=== PATIENT | male | born 1930 | race Caucasian/White ===

== ENCOUNTER 2019-01-24 22:11 | Inpatient (IN) ==
[2019-01-24] MEDS ORDERED: ACETAMINOPHEN 1,000 MG/100 ML VIAL IV STA (22:36)
[2019-01-24] MEDS ORDERED: SODIUM CHLORIDE 0.9% 500 ML IV SCH (22:45)
[2019-01-24 22:59] LABS: Basophils # (auto) 0.02 K/uL (0-0.2); Basophils % (auto) 0.2 %; Eosinophils # (auto) 0.23 K/uL (0-0.5); Eosinophils % (auto) 2.4 %; Hematocrit (blood only) 37.6 % (42-52); Hemoglobin 13.1 g/dL (14.0-18.0); Immature Granulocytes # (auto) 0.02 K/uL (0.00-0.02); Immature Granulocytes % (auto) 0.2 %; Lymphocytes # (auto) 1.06 K/uL (1.2-3.4); Lymphocytes % (auto) 11.1 %; Mean Corpuscular Hemoglobin 32.4 pg (25-34); Mean Corpuscular Hgb Conc 34.8 g/dL (32-36); Mean Corpuscular Volume 93.1 fL (80-100); Mean Platelet Volume 10.8 fL (7.4-10.4); Monocytes # (auto) 1.06 K/uL (0.11-0.59); Monocytes % (auto) 11.1 %; Neutrophils # (auto) 7.15 K/uL (1.4-6.5); Platelet Count 162 K/uL (130-400); RDW Coefficient of Variation 13.1 % (11.5-14.5); Red Blood Count 4.04 M/uL (4.7-6.1); White Blood Count 9.54 K/uL (4.8-10.8)
[2019-01-24 23:02] LABS: iSTAT Creatinine 0.8 mg/dl (0.6-1.3); iSTAT Hemoglobin 12.6 g/dl (14.0-18.0); iSTAT Ionized Calcium 1.13 mmol/l (1.12-1.32); iSTAT Potassium 3.7 mEq/L (3.3-5.0)
[2019-01-24] MEDS ORDERED: IOVERSOL 100ml IV PRN (23:07)
[2019-01-24 23:14] LABS: Alanine Aminotransferase 22 U/L (12-78); Albumin Level 3.1 gm/dl (3.4-5.0); Aspartate Aminotransferase 66 U/L (15-37); BUN Creatinine Ratio 26.7 (10-20); Blood Urea Nitrogen 25 mg/dl (7-18); Carbon Dioxide 26 mmol/L (21-32); Chloride 104 mmol/L (98-107); Est GFR (African American) 85.2; Est GFR (Non-African American) 73.6; Glucose 96 mg/dl (70-99); Magnesium 1.6 mg/dl (1.8-2.4); Potassium 3.6 mmol/L (3.5-5.1); Sodium 137 mmol/L (136-145)
[2019-01-24 23:20] LABS: INR 3.5 (0.9-1.1); Prothrombin Time 32.4 Seconds (9.0-12.0)
[2019-01-24 23:25] LABS: Albumin Globulin Ratio 0.7 (0.9-2); Alkaline Phosphatase 101 U/L (45-117); Bilirubin,Total 0.4 mg/dl (0.2-1); Creatine Kinase 549 U/L (39-308); Globulin 4.5 gm/dl (2.5-4.0); Total Protein 7.6 gm/dl (6.4-8.2); Troponin I 0.038 ng/ml (0-0.045)
[2019-01-24 23:44] LABS: Partial Thromboplastin Time 53.8 Seconds (21.0-31.0)
[2019-01-24 23:46] LABS: Appearance Urine Cloudy (Clear); Bacteria Urine Automated 4+ (Negative); Bilirubin Urine Negative (Negative); Blood Urine 2+ (Negative); Color Urine Yellow; Glucose Urine UA Negative (Negative); Ketones Urine Negative (Negative); Leukocyte Esterase Urine 2+ (Negative); Nitrite Urine Negative (Negative); Specific Gravity Urine 1.029 (1.000-1.030); Urobilinogen Urine Negative (Negative); WBC Urine Automated >30 /hpf (0-5); pH Urine 7.5 (4.5-7.5)
[2019-01-24] MEDS ORDERED: MAGNESIUM SULFATE / D5W 1 GM/100 ML BAG IV ONE (23:53)
[2019-01-25 00:09] LABS: Protein Urine Negative (Negative); Sulfosalicylic Acid Urine Negative (Negative)
[2019-01-25] MEDS ORDERED: cefTRIAXone SODIUM 2,000 MG/70 ML BAG IV STA (00:40)
--- NOTE | 2019-01-25 00:49 | Emergency Department Note ---
Entered by Prudence Mortensen acting as a scribe for Ta Rodriguez DO ED Visit Note The patient was seen and examined by myself in conjunction with the advanced care provider, Josefina Lopes PA-C. I agree with the history, physical and findings as documented. Please see the note for disposition and details. . The scribe's documentation has been prepared under my direction and personally reviewed by me in its entirety. I confirm that the note above accurately refle cts all work, treatment, procedures, and medical decision making performed by me.
--- NOTE | 2019-01-25 00:52 | Emergency Department Note ---
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 He has been falling more frequently. He has hit his head back and chest this past week. Coumadin last month was normal. Family is concerned and brought him in. The and daughters give the history. Patient is demented and unable to give history. Past Med/Surg History Social History Preferred Language: Romansh Feels Safe at Home: Yes Smoking Status: Never smoker Review of Systems Unobtainable due to cognitive status Physical Exam Vital Signs Vital Signs - 24 hr 01/24/19 22:14 01/24/19 23:16 01/25/19 00:00 Temperature 37.4 C Temperature Source Oral Pulse Rate 92 H 85 Pulse Rate [Apical] 85 Pulse Rate from SpO2 Sensor 84 Pulse Rhythm Regular Pulse Strength Normal Respiratory Rate 20 24 19 Respiratory Effort / Characteristics Non-Labored Respiratory Depth Normal Respiratory Pattern Regular Blood Pressure 175/82 H 156/90 H Blood Pressure [Left Arm] 176/83 H Blood Pressure Mean 113 109 Blood Pressure Mean [Left Arm] 114 Blood Pressure Position Sitting Pulse Oximetry 97 96 95 Oxygen Delivery Method Room Air Room Air Sepsis Recent Fever Within 48 Hours No Sepsis Action Taken by Nursing No Action Required VITALS: Vitals are noted on the nurse's note and reviewed by myself. Vital signs stable. GENERAL: Elderly male confused appearing, in no acute distress, nondiaphoretic, well-developed well-nourished. SKIN: Multiple different stages of bruises throughout the body and head, the rest of the skin was without rashes, erythema. There is no tenting of the skin. Capillary reflex less than 2 seconds. HEAD: Normocephalic atraumatic. EARS: External auditory canals clear, tympanic membranes pearly he without erythema or effusion bilaterally. EYES: Pupils equal round and reactive to light and accommodation. Conjunctivae without injection, sclerae without icterus. Extraocular movements intact. NOSE: Patent, turbinates without inflammation or discharge. MOUTH: Mucous membranes moist. Pharynx without erythema or exudate. Uvula midline. Airway patent. Tongue does not deviate. NECK: Supple without nuchal rigidity. No lymphadenopathy. No thyromegaly. Cervical spine is nontender. No JVD. HEART: Regular rate and rhythm LUNGS: Clear to auscultation bilaterally without wheezes, rales or rhonchi. No retractions or accessory muscle use. ABDOMEN: Positive bowel sounds x 4. Normal tympanic percussion. Soft, nontender, without masses or organomegaly. Varghese sign negative. No guarding or rebound tenderness. No CVA tenderness MUSCULOSKELETAL: No muscle atrophy, erythema, or edema noted. Midthoracic tenderness. Pelvis stable. 5-5 strength throughout. NEURO: Patient was alert and oriented to person but not place and time. Patient is able to follow commands Course Administered Medications Ioversol (Optiray 320 100ml) 90 ml IV ONCE PRN PRN Reason: Interaction Checking Stop: 01/28/19 23:06 Last Admin: 01/24/19 23:08 Dose: 90 ml Documented by: [id number] Discontinued Medications Sodium Chloride (Nss) 500 mls @ 999 mls/hr IV .Q31M NICKY Stop: 01/24/19 23:15 Last Infusion: 01/24/19 23:53 Dose: 0 mls/hr Documented by: [id number] Admin: 01/24/19 23:19 Dose: 999 mls/hr Documented by: [id number] Acetaminophen (Ofirmev) 1,000 mg in 100 mls @ 400 mls/hr IV NOW STA Stop: 01/24/19 22:50 Last Infusion: 01/24/19 23:35 Dose: 0 mls/hr Documented by: [id number] Admin: 01/24/19 23:19 Dose: 400 mls/hr Documented by: [id number] Magnesium Sulfate/Dextrose (Magnesium Sulfate / D5w) 1 gm in 100 mls @ 100 mls/hr IV ONE ONE Stop: 01/25/19 00:52 Last Infusion: 01/25/19 01:05 Dose: 0 mls/hr Documented by: [id number] Admin: 01/25/19 00:06 Dose: 100 mls/hr Documented by: [id number] Ceftriaxone Sodium (Rocephin) 2,000 mg in 70 mls @ 140 mls/hr IV NOW STA Stop: 01/25/19 01:09 Last Admin: 01/25/19 01:35 Dose: Not Given Documented by: [id number] Ceftriaxone Sodium (Rocephin) 1,000 mg in 50 mls @ 100 mls/hr IV NOW STA Stop: 01/25/19 01:30 Last Infusion: 01/25/19 01:35 Dose: 0 mls/hr Documented by: [id number] Admin: 01/25/19 01:05 Dose: 100 mls/hr Documented by: [id number] Medical Decision Making Medical Records Attestation: I reviewed the patient's medical records. Home Medications Current Medication List: was personally reviewed by me Laboratory Data Attestation: I reviewed the patient's lab results. Result diagrams: 01/24/19 22:49 01/24/19 22:49 Lab Results 01/24/19 01/24/19 01/24/19 Range/Units 22:47 22:49 22:49 WBC 9.54 (4.8-10.8) K/uL RBC 4.04 L (4.7-6.1) M/uL Hgb 13.1 L (14.0-18.0) g/dL POC Hgb 12.6 L (14.0-18.0) g/dl Hct 37.6 L (42-52) % POC Hct 37 L (42-52) % MCV 93.1 (80-100) fL MCH 32.4 (25-34) pg MCHC 34.8 (32-36) g/dL RDW Std Deviation 45.0 (36.4-46.3) fL RDW Coeff of Patience 13.1 (11.5-14.5) % Plt Count 162 (130-400) K/uL MPV 10.8 H (7.4-10.4) fL Immature Gran % (Auto) 0.2 % Neut % (Auto) 75.0 % Lymph % (Auto) 11.1 % [place] % (Auto) 11.1 % Eos % (Auto) 2.4 % Baso % (Auto) 0.2 % Immature Gran # (Auto) 0.02 (0.00-0.02) K/uL Neut # (Auto) 7.15 H (1.4-6.5) K/uL Lymph # (Auto) 1.06 L (1.2-3.4) K/uL [place] # (Auto) 1.06 H (0.11-0.59) K/uL Eos # (Auto) 0.23 (0-0.5) K/uL Baso # (Auto) 0.02 (0-0.2) K/uL PT (9.0-12.0) Seconds INR (0.9-1.1) APTT (21.0-31.0) Seconds PTT Ratio POC Sodium 138 (135-144) mEq/L Sodium 137 (136-145) mmol/L POC Potassium 3.7 (3.3-5.0) mEq/L Potassium 3.6 (3.5-5.1) mmol/L POC Chloride 102 (101-112) mEq/L Chloride 104 (98-107) mmol/L Carbon Dioxide 26 (21-32) mmol/L POC Total CO2 26 (24-31) mEq/l Anion Gap 8.0 (3-11) POC Anion Gap 14.0 L (16-25) mmol/L POC BUN 22 H (7-18) mg/dl BUN 25 H (7-18) mg/dl Creatinine 0.93 (0.6-1.4) mg/dl POC Creatinine 0.8 (0.6-1.3) mg/dl Est Cr Clr Drug Dosing Not Reportable Est GFR ( Amer) 85.2 Est GFR (Non-Af Amer) 73.6 BUN/Creatinine Ratio 26.7 H (10-20) Glucose 96 (70-99) mg/dl POC Glucose (other) 99 (70-99) mg/dl Calcium 9.0 (8.5-10.1) mg/dl POC Ioniz Calcium Mehdi 1.13 (1.12-1.32) mmol/l Magnesium 1.6 L (1.8-2.4) mg/dl Total Bilirubin 0.4 (0.2-1) mg/dl AST 66 H (15-37) U/L ALT 22 (12-78) U/L Alkaline Phosphatase 101 (45-117) U/L Total Creatine Kinase 549 H (39-308) U/L Troponin I 0.038 (0-0.045) ng/ml Total Protein 7.6 (6.4-8.2) gm/dl Albumin 3.1 L (3.4-5.0) gm/dl Globulin 4.5 H (2.5-4.0) gm/dl Albumin/Globulin Ratio 0.7 L (0.9-2) TSH 1.750 (0.300-4.500) uIu/ml Urine Color Urine Appearance (Clear) Urine pH (4.5-7.5) Ur Specific [place] (1.000-1.030) Urine Protein (Negative) Urine Glucose (UA) (Negative) Urine Ketones (Negative) Urine Blood (Negative) Urine Nitrite (Negative) Urine Bilirubin (Negative) Urine Urobilinogen (Negative) Ur Leukocyte Esterase (Negative) Urine WBC (Auto) (0-5) /hpf Urine RBC (Auto) (0-4) /hpf U Hyaline Cast (Auto) (0-5) /lpf U Epithel Cells (Auto) (0-5) /lpf Urine Bacteria (Auto) (Negative) Urine Yeast 01/24/19 01/24/19 Range/Units 22:49 23:31 WBC (4.8-10.8) K/uL RBC (4.7-6.1) M/uL Hgb (14.0-18.0) g/dL POC Hgb (14.0-18.0) g/dl Hct (42-52) % POC Hct (42-52) % MCV (80-100) fL MCH (25-34) pg MCHC (32-36) g/dL RDW Std Deviation (36.4-46.3) fL RDW Coeff of Patience (11.5-14.5) % Plt Count (130-400) K/uL MPV (7.4-10.4) fL Immature Gran % (Auto) % Neut % (Auto) % Lymph % (Auto) % [place] % (Auto) % Eos % (Auto) % Baso % (Auto) % Immature Gran # (Auto) (0.00-0.02) K/uL Neut # (Auto) (1.4-6.5) K/uL Lymph # (Auto) (1.2-3.4) K/uL [place] # (Auto) (0.11-0.59) K/uL Eos # (Auto) (0-0.5) K/uL Baso # (Auto) (0-0.2) K/uL PT 32.4 H (9.0-12.0) Seconds INR 3.5 H (0.9-1.1) APTT 53.8 H* (21.0-31.0) Seconds PTT Ratio 2.0 POC Sodium (135-144) mEq/L Sodium (136-145) mmol/L POC Potassium (3.3-5.0) mEq/L Potassium (3.5-5.1) mmol/L POC Chloride (101-112) mEq/L Chloride (98-107) mmol/L Carbon Dioxide (21-32) mmol/L POC Total CO2 (24-31) mEq/l Anion Gap (3-11) POC Anion Gap (16-25) mmol/L POC BUN (7-18) mg/dl BUN (7-18) mg/dl Creatinine (0.6-1.4) mg/dl POC Creatinine (0.6-1.3) mg/dl Est Cr Clr Drug Dosing Est GFR ( Amer) Est GFR (Non-Af Amer) BUN/Creatinine Ratio (10-20) Glucose (70-99) mg/dl POC Glucose (other) (70-99) mg/dl Calcium (8.5-10.1) mg/dl POC Ioniz Calcium Mehdi (1.12-1.32) mmol/l Magnesium (1.8-2.4) mg/dl Total Bilirubin (0.2-1) mg/dl AST (15-37) U/L ALT (12-78) U/L Alkaline Phosphatase (45-117) U/L Total Creatine Kinase (39-308) U/L Troponin I (0-0.045) ng/ml Total Protein (6.4-8.2) gm/dl Albumin (3.4-5.0) gm/dl Globulin (2.5-4.0) gm/dl Albumin/Globulin Ratio (0.9-2) TSH (0.300-4.500) uIu/ml Urine Color Yellow Urine Appearance Cloudy A (Clear) Urine pH 7.5 (4.5-7.5) Ur Specific [place] 1.029 (1.000-1.030) Urine Protein Negative (Negative) Urine Glucose (UA) Negative (Negative) Urine Ketones Negative (Negative) Urine Blood 2+ H (Negative) Urine Nitrite Negative (Negative) Urine Bilirubin Negative (Negative) Urine Urobilinogen Negative (Negative) Ur Leukocyte Esterase 2+ H (Negative) Urine WBC (Auto) >30 H (0-5) /hpf Urine RBC (Auto) 5-10 H (0-4) /hpf U Hyaline Cast (Auto) 1-5 (0-5) /lpf U Epithel Cells (Auto) 10-20 H (0-5) /lpf Urine Bacteria (Auto) 4+ H (Negative) Urine Yeast Not Reportable Imaging Data Attestation: I personally reviewed and interpreted this imaging study as follows: Blood Pressure Blood Pressure Findings: Elevated blood pressure Blood Pressure Disposition: Referred to patients primary care provider [facility] Narrative Prior records/ancillary studies reviewed and summarized above. Nursing notes reviewed. Additional history obtained from family. The patient's history was concerning for increasing falls and possible abdominal and back pain. Differential diagnosis: Etiologies such as metabolic, infection, hypo/hyperglycemia, electrolyte abnormalities, cardiac sources, intracerebral event, toxicologic, neurologic, as well as others were entertained. Physical examination: As above. ER treatment provided: IV Lock Rocephin On reassessment the patient felt better. Diagnostics interpretation by me: ECG: Ordered for weakness Normal sinus, normal intervals, no acute ST-T wave changes. Impression normal sinus rhythm interpreted by myself I think arrhythmia is unlikely. EKG shows normal sinus rhythm with no interval abnormalities such as QT prolongation or WPW. There are no findings to suggest Brugada syndrome. Cardiac monitoring in the emergency department reveals no tachycardic or bradycardic dysrhythmia. Hypertrophic cardiomyopathy was considered but there are no clear historical elements pointing toward this. EKG is not suggestive. The QRS voltage is not extremely large and there are no suggestive Q waves. The labs revealed urine concerning for infection and sent for culture. Negative troponin Supratherapeutic INR, mild anemia Imaging studies: US RUQ: The gallbladder is decompressed with a few intraluminal stones. No mucosal thickening or pericholecystic free fluid. No biliary dilatation. Negative Varghese's sign. Unremarkable appearance of the visualized portions of the right liver and the right kidney. The pancreas is obscured by bowel gas. Radiologist: Taj Murillo MD CT C SPINE: Mild height loss at T1, favored chronic. Correlate for point tenderness. Otherwise no fracture within the cervical spine. Radiologist: Taj Murillo MD CT CHEST With Contrast: No traumatic injury within the chest. Coronary artery calcifications. Mild atherosclerotic calcifications of the aorta. Mildly ectatic ascending aorta measuring 4.0 cm. Radiologist: Taj Murillo MD CT L SPINE: No acute fracture or malalignment. Chronic left L3 transverse process fracture. Radiologist: Taj Murillo MD CT T SPINE: No acute fracture in the thoracic spine. Radiologist: Taj Murillo MD CT ABDOMEN & PELVIS With Contrast: No traumatic injury within the abdomen or pelvis. Cholelithiasis. 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 Radiologist: Taj Murillo MD CT HEAD: No intracranial hemorrhage. Chronic right MCA distribution infarct. Chronic microvascular ischemic changes. Chronic nasal bone fracture. No acute appearing fracture. Radiologist: Taj Murillo MD Consultation: A consultation was placed with the hospitalist, Dr. Carvalho. The case was discussed and diagnostics were reviewed. The patient was evaluated in the ER for further treatment. Exam and history seem consistent with increasing falls with UTI and dementia and family feels uncomfortable caring for him at home. He was given antibiotics. Medicine was consulted. Negative imaging. Family is agreeable to treatment plan of admission. They are requesting possible placement to a custodial for his dementia. By the evaluation outlined above emergent etiologies such as electrolyte a bnormalities, cardiac sources, intracerebral event, abnormalities blood glucose, metabolic, as well as others were deemed relatively unlikely. The family informed about the findings as listed above. All questions were answered and pleased with the treatment. Case reviewed with my attending The chart was completed utilizing [employer] Speech voice recognition software. Grammatical errors, random word insertions, pronoun errors, and incomplete sentences are an occassional consequence of this system due to software limitations, ambient noise, and hardware issues. Any formal questions or concerns about the content, text, or information contained within the body of this dictation should be directly addressed to the physician hotel administrative assistant for clarification. Impression & Plan Acute UTI, Falls, Dementia Discharge Plan Visit Data Chief Complaint: Fall Stated Complaint: FALL ED Provider: Ta Rodriguez ED Midlevel Provider: Josefina Lopes Discharge Problem: Acute UTI, Falls, Dementia Patient Disposition: Being Evaluated by Hospitalist Condition: Fair Forms Stand Alone Forms: My [facility] Referrals Referrals: Abisai Downs MD [Primary Care Provider] -
[2019-01-25] MEDS ORDERED: cefTRIAXone SODIUM 1,000 MG/50 ML BAG IV STA (01:01)
--- NOTE | 2019-01-25 02:25 | History & Physical Report ---
Date of Service January 25, 2019 Assessment & Plan (1) Acute UTI: 88-year-old male with history of previous NH in 1992 status post stent placement, CVA 2001, PE/DVT on Coumadin, DM 2, hypertension, hyperlipidemia, severe dementia presents with family for concern of multiple falls x4 days. Of note: Patient's pharmacy is [facility] in [place] on [facility] -please call to verify chronic home meds Multiple falls: Complaining of abdominal and back pain per family Afebrile, no WBC elevation, hemoglobin 13.1, mild elevation in BUN/creatinine 25/0.93 History of severe dementia EKG: NSR 85 QTc 445 Troponin 0.038 TCK: [address]: Chronic right MCA distribution infarct, chronic microvascular ischemic changes, chronic nasal bone fracture CT chest: No traumatic injury, coronary artery calcification, mild aortic atherosclerotic calcification, mild ectatic ascending aorta measuring [address] C-spine: Mild height loss T1 appears chronic CT T-spine: No acute fracture CT L-spine: No fracture or malalignment, chronic left L3 transverse process fracture CT abdomen: Cholelithiasis no traumatic injury, ectatic infrarenal abdominal aorta 2.9 cm Gallbladder ultrasound: Decompressed, few intraluminal stones, no mucosal thickening or pericholecystic fluid, negative Varghese's no biliary dilation Monitor on telemetry for any arrhythmia Trend troponin UTI: Afebrile, no WBC elevation UA positive Urine culture pending Received Rocephin in the ED Continue Rocephin Follow urine culture Dehydration Elevated BUN/creatinine ratio 25/0.93 LR 80 cc/h x 2 L Monitor BMP History of hypertension, hyperlipidemia, previous NH with stent placement reports patient being on Lipitor, metoprolol believes 12.5 mg -verify with pharmacy tomorrow then continue Hydralazine as needed for blood pressure in the meantime DM2 reports patient being on metformin unsure of dose, verify with pharmacy t omorrow and continue History of CVA 2001 Per patient is on Dilantin? -Verify with pharmacy tomorrow Dilantin level ordered Previous PE/DVT Patient is reported to be on Coumadinverify with pharmacy tomorrow Current INR 3.5, supratherapeutic Continue warfarin when indicated Severe dementia One-on-one ordered FEN/GI: LR 80 cc/h x 2 L, DM 2 diet DVT prophylaxis: Continue home warfarin when INR therapeutic Code: Full per discussion with family and daughter Disposition: MedSurg with telemetry (2) Falls: (3) Dementia: (4) CVA (cerebral vascular accident): (5) Pulmonary emboli: (6) Diabetes: (7) History of DVT (deep vein thrombosis): (8) HTN (hypertension): (9) HLD (hyperlipidemia): (10) History of NH (myocardial infarction): History of Present Illness Chief Complaint: Multiple falls in the past week Primary Care Provider: Abisai Downs MD 88-year-old male with history of previous NH in 1992 status post stent placement, CVA 2001, PE/DVT on Coumadin, DM 2, hypertension, hyperlipidemia, severe dementia presents with family for concern of multiple falls x4 days. Patient lives in [place] with son and . Family had a get together for Thanksgiving today and daughter was concerned so she brought him to the ED. He usually does not leave the house but on Monday, 4 days ago he was noted to leave the house and fell in the driveway. Fall was unwitnessed. However he returned with facial abrasions and must of hit his face and head. Monday, 3 days ago he slipped out of bed of note he has chucks under him and must of slipped on them. Yesterday he was not complaining of any pain however today he was wincing and whining and complaining of back, abdominal and righ flank pain. He has abrasions on his faceeyelids cheeks chin knees and back. Of note: forgot to bring list of medications but will call and provide nursing with list of medications when she gets home tonight. Too late to call pharmacy but his pharmacy is [facility] [place] on [facility]. Our pharmacy did not have his records. Social history: Per family he never smoked, drink alcohol or use recreational drugs, lives with son and Allergies Allergy/AdvReac Type Severity Reaction Status Date / Time Penicillins Allergy Severe Anaphylaxis Verified 01/25/19 03:41 Home Medications Home Medications Medication Instructions Recorded Confirmed Type atorvastatin 20 mg PO DAILY 01/25/19 01/25/19 History cholecalciferol (vitamin D3) 2,000 unit PO DAILY 01/25/19 01/25/19 History [Vitamin D3] cyanocobalamin (vitamin B-12) 500 mcg PO DAILY 01/25/19 01/25/19 History [Vitamin B-12] finasteride 5 mg PO DAILY 01/25/19 01/25/19 History isosorbide mononitrate 30 mg PO DAILY 01/25/19 01/25/19 History latanoprost 1 drp OPHTHALMIC (EYE) HS 01/25/19 01/25/19 History metformin 500 mg PO BID 01/25/19 01/25/19 History metoprolol succinate 12.5 mg PO DAILY 01/25/19 01/25/19 History mirtazapine 15 mg PO HS 01/25/19 01/25/19 History omega 6-[id number]-fish oil [Fish Oil] 1 cap PO BID 01/25/19 01/25/19 History phenytoin sodium extended 100 mg PO BID 01/25/19 01/25/19 History [Dilantin Extended] phenytoin sodium extended 30 mg PO BID 01/25/19 01/25/19 History [Dilantin] tamsulosin 0.4 mg PO DAILY 01/25/19 01/25/19 History warfarin [Coumadin] 4 mg PO DAILY 01/25/19 01/25/19 History Past Med/Surg History Social History Preferred Language: Serbian Communication Ability: Effective Environmental Planning Engineer Required: No Beliefs That Will Affect Care: None Current Living Situation: Spouse and Family Current Living Situation Comment: and Son Luis Downs Other Information That Helps Us Care for You: No Feels Safe at Home: Yes Safety Concerns: Feels Safe At This Time and Afraid for Self Smoking Status: Never smoker Hx Alcohol Use: No Hx Substance Use: No Review of Systems Review of Systems: As per HPI Physical Exam Physical Exam: General: In NAD, hard of hearing Neuro: A&O x 1, CN 2-12 intact (unable to assess for facial sensation due to pt being demented and not responding appropriately), strength 5/5 bilateral upper and lower extremities, sensation upper and lower extremities (difficult to assess due to dementia) Pulm: CTAB equal breath sounds bilaterally CV: RRR, no m/r/g Abdomen:+BS, mild lower abdominal TTP, non-distended LE: no LE edema, no calf TTP, DP pulse intact 2+ on LLE and Posterior tibial pulse 2+ RLE Skin: Multiple abrasions on face, scalp, knees Results & Data Vital Signs (Past 12 Hours) Vital Signs Temp Pulse Pulse Resp BP BP Pulse Ox 01/25/19 00:00 85 19 156/90 H 95 01/24/19 23:16 85 24 176/83 H 96 01/24/19 22:14 37.4 C 92 H 20 175/82 H 97 Laboratory Results Abnormal lab results 01/24/19 01/24/19 01/24/19 Range/Units 22:47 22:49 22:49 RBC 4.04 L (4.7-6.1) M/uL Hgb 13.1 L (14.0-18.0) g/dL POC Hgb 12.6 L (14.0-18.0) g/dl Hct 37.6 L (42-52) % POC Hct 37 L (42-52) % MPV 10.8 H (7.4-10.4) fL Neut # (Auto) 7.15 H (1.4-6.5) K/uL Lymph # (Auto) 1.06 L (1.2-3.4) K/uL Brooke # (Auto) 1.06 H (0.11-0.59) K/uL PT (9.0-12.0) Seconds INR (0.9-1.1) APTT (21.0-31.0) Seconds POC Anion Gap 14.0 L (16-25) mmol/L POC BUN 22 H (7-18) mg/dl BUN 25 H (7-18) mg/dl BUN/Creatinine Ratio 26.7 H (10-20) Magnesium 1.6 L (1.8-2.4) mg/dl AST 66 H (15-37) U/L Total Creatine Kinase 549 H (39-308) U/L Albumin 3.1 L (3.4-5.0) gm/dl Globulin 4.5 H (2.5-4.0) gm/dl Albumin/Globulin Ratio 0.7 L (0.9-2) Urine Appearance (Clear) Urine Blood (Negative) Ur Leukocyte Esterase (Negative) Urine WBC (Auto) (0-5) /hpf Urine RBC (Auto) (0-4) /hpf U Epithel Cells (Auto) (0-5) /lpf Urine Bacteria (Auto) (Negative) 01/24/19 01/24/19 Range/Units 22:49 23:31 RBC (4.7-6.1) M/uL Hgb (14.0-18.0) g/dL POC Hgb (14.0-18.0) g/dl Hct (42-52) % POC Hct (42-52) % MPV (7.4-10.4) fL Neut # (Auto) (1.4-6.5) K/uL Lymph # (Auto) (1.2-3.4) K/uL Brooke # (Auto) (0.11-0.59) K/uL PT 32.4 H (9.0-12.0) Seconds INR 3.5 H (0.9-1.1) APTT 53.8 H* (21.0-31.0) Seconds POC Anion Gap (16-25) mmol/L POC BUN (7-18) mg/dl BUN (7-18) mg/dl BUN/Creatinine Ratio (10-20) Magnesium (1.8-2.4) mg/dl AST (15-37) U/L Total Creatine Kinase (39-308) U/L Albumin (3.4-5.0) gm/dl Globulin (2.5-4.0) gm/dl Albumin/Globulin Ratio (0.9-2) Urine Appearance Cloudy A (Clear) Urine Blood 2+ H (Negative) Ur Leukocyte Esterase 2+ H (Negative) Urine WBC (Auto) >30 H (0-5) /hpf Urine RBC (Auto) 5-10 H (0-4) /hpf U Epithel Cells (Auto) 10-20 H (0-5) /lpf Urine Bacteria (Auto) 4+ H (Negative) Code Status & VTE Plan Code Status Full code per discussion with family VTE Prophylaxis Plan VTE Prophylaxis will be ordered: Yes Supervising Physician Co-Signing Physician Notes Attending addendum: I have physically seen this patient, have supervised the medical residents activities, and agree with the H&P unless as otherwise noted. Assessment and Plan: Increased frequency of falls/severe dementia- Observation to monitored bed. CT of head: chronic right MCA distribution infarct, chronic small vessel disease and chronic nasal bone fracture. CT of cervical, thoracic and lumbar spine: Chronic T1 height loss, chronic left L3 transverse process fracture. CT of abdomen and pelvis: No acute findings. Possible cause of symptoms may be due to urinary tract infection. Urinary tract infection/early rhabdomyolysis- Continue empiric treatment with ceftriaxone 1 g IV daily begun the ED. Follow urine culture and sensitivities. Follow serial laboratories including CK. IV fluids. Remainder of orders and notations as noted. Resident Activity Tracking Resident Involvement: Resident Care Provided Care Provided: Adult Hospital Medicine
[2019-01-25] MEDS ORDERED: MAGNESIUM SULFATE / D5W 1 GM/100 ML BAG IV ONE (04:17)
[2019-01-25] MEDS ORDERED: ONDANSETRON INJ 2 MG/ML 2 ML VIAL IV PRN (04:17)
[2019-01-25] MEDS: LACTATED RINGER'S 1,000 ML IV SCH ×2 (04:55→17:14)
[2019-01-25] MEDS: PATIENT'S HEIGHT AND/OR WEIGHT NEEDED SCH ×2 (05:00→05:45)
[2019-01-25] MEDS ORDERED: GLUCOSE 40% GEL 15 GM TUBE PO PRN (05:45)
[2019-01-25] MEDS ORDERED: GLUCAGON FOR INJ 1 MG VIAL SQ PRN (05:45)
[2019-01-25] MEDS ORDERED: CARBOHYDRATES FOR HYPOGLYCEMIA PO PRN (05:45)
[2019-01-25] MEDS ORDERED: DEXTROSE 50% 50 ML SYRINGE IV PRN (05:45)
[2019-01-25] MEDS ORDERED: GLUCOSE 10 TABS/TUBE PO PRN (05:45)
--- NOTE | 2019-01-25 06:20 | CT Scan Report ---
CT cervical spine wo con CT DOSE: HISTORY: Trauma. Pain. fall, on coumadin, dementia, head/abd/bk pain TECHNIQUE: Multiaxial CT images of the cervical spine were performed and reformatted in the sagittal and coronal plane without the use of contrast. A dose lowering technique was utilized adhering to e principles of ALARA. COMPARISON: None. FINDINGS: Generalized degenerative change. Osteopenia. Slight wedge deformity superior endplate T1 of uncertain age. Degenerative changes posterior elements. IMPRESSION: 1. No acute process of the cervical spine. 2. Slight wedge deformity superior endplate T1 of uncertain age. 3. Degenerative change is noted. The above report was generated using voice recognition software. It may contain grammatical, syntax or spelling errors. Electronically signed by: Russell Jaimes M.D. 01/25/2019 6:18 AM
--- NOTE | 2019-01-25 06:28 | CT Scan Report ---
CT abd pelvis IV con only CT DOSE: HISTORY: Trauma fall, on coumadin, dementia, head/abd/bk pain TECHNIQUE: Multiaxial CT images of the abdomen and pelvis were performed following the use of intrave nous contrast. A dose lowering technique was utilized adhering to the principles of ALARA. COMPARISON STUDY: None. FINDINGS: The lung bases are clear. The liver, spleen, gallbladder, pancreas, kidneys, and adrenal gl ands are within normal limits. No bowel wall thickening or obstruction. The pelvic organs are unremar kable. No suspicious lytic or blastic osseous lesions. Gallbladder somewhat contracted with several g allstones. Mild age-related cortical scarring kidneys. Small left renal cyst. Nonobstructive bowel pa ttern. IMPRESSION: No acute process of the abdomen or pelvis. Gallstones. The above report was generated using voice recognition software. It may contain grammatical, syntax or spelling errors. Electronically signed by: Russell Jaimes M.D. 01/25/2019 6:27 AM
--- NOTE | 2019-01-25 06:33 | CT Scan Report ---
CT OF THE THORACIC SPINE CLINICAL HISTORY: fall, on coumadin, dementia, head/abd/bk pain COMPARISON STUDY: No previous studies for comparison. TECHNIQUE: Helical axial images of the thoracic spine were obtained. Sagittal and coronal reconstru ctions were viewed. Automated exposure control was utilized for the study. A dose lowering techniqu e was utilized adhering to the principles of ALARA. FINDINGS: Alignment of the thoracic spine is anatomic. Vertebral body heights are maintained. There i s no acute thoracic spine fracture. There is mild multilevel disc space narrowing and moderate anteri or osteophytosis. Facet joints are intact. Central canal and neural foramen are suboptimally assessed by CT. Please note that the chest CT will be reported separately. IMPRESSION: No acute thoracic spine fracture or subluxation. Electronically signed by: Eliseo Mcfarlane M.D. 01/25/2019 6:32 AM
--- NOTE | 2019-01-25 06:37 | CT Scan Report ---
CT lumbar spine wo con CLINICAL HISTORY: fall, on coumadin, dementia, head/abd/bk pain COMPARISON STUDY: No previous studies for comparison. TECHNIQUE: Axial images of the lumbar spine were obtained without IV contrast. Sagittal and coronal r econstructions were viewed. Automated exposure control was utilized for the study. A dose lowering t echnique was utilized adhering to the principles of ALARA. FINDINGS: Alignment of the lumbar spine is anatomic. There is no acute lumbar spine fracture. There i s an old, healed fracture of the left transverse process of L3. There is moderate anterior osteophyto sis and mild to moderate multilevel degenerative disc disease within the lumbar spine. The central ca nal and neural foramen are suboptimally assessed by CT. The CT of the abdomen and pelvis will be repo rted separately. Facet joints are patent. Sacroiliac joints are intact. IMPRESSION: No acute lumbar spine fracture or subluxation. Electronically signed by: Eliseo Mcfarlane M.D. 01/25/2019 6:36 AM
[2019-01-25 06:41] LABS: Basophils # (auto) 0.02 K/uL (0-0.2); Basophils % (auto) 0.2 %; Eosinophils % (auto) 1.1 %; Hematocrit (blood only) 39.5 % (42-52); Hemoglobin 13.7 g/dL (14.0-18.0); Immature Granulocytes # (auto) 0.03 K/uL (0.00-0.02); Immature Granulocytes % (auto) 0.3 %; Lymphocytes # (auto) 0.81 K/uL (1.2-3.4); Lymphocytes % (auto) 8.5 %; Mean Corpuscular Hemoglobin 31.7 pg (25-34); Mean Corpuscular Volume 91.4 fL (80-100); Mean Platelet Volume 10.9 fL (7.4-10.4); Monocytes # (auto) 1.21 K/uL (0.11-0.59); Monocytes % (auto) 12.7 %; Neutrophils # (auto) 7.33 K/uL (1.4-6.5); Neutrophils % (auto) 77.2 %; Platelet Count 154 K/uL (130-400); RDW Standard Deviation 43.8 fL (36.4-46.3); Red Blood Count 4.32 M/uL (4.7-6.1)
--- NOTE | 2019-01-25 06:41 | CT Scan Report ---
CT SCAN OF THE BRAIN WITHOUT IV CONTRAST CLINICAL HISTORY: Fall. Dementia. COMPARISON STUDY: No priors. TECHNIQUE: Unenhanced axial CT scan of the brain is performed from the vertex to the skull base. A do se lowering technique was utilized adhering to the principles of ALARA. FINDINGS: Brain parenchyma: Right MCA territory encephalomalacia is consistent with a remote infarct. There are age-related involutional changes noting moderate subcortical and periventricular microangiopathic c hange. There is no hemorrhage, mass effect, or evidence of acute territorial ischemia by CT criteria. Leyva-white matter differentiation is preserved. No extra-axial fluid collection is seen. Ventricles, sulci, cisterns: Prominent secondary to involutional change. Intracranial vasculature: There is atherosclerotic calcification of the cavernous carotid and vertebr al arteries. Calvarium: The skeletal structures are osteopenic. No depressed calvarial fracture is identified. The re is age indeterminant but chronic appearing deformity of the nasal bones. Sinuses and mastoids: The visualized paranasal sinuses are clear. The mastoid air cells are well pneu matized. Orbits: The bony orbits are grossly intact. There are bilateral ocular lens implants. IMPRESSION: There is no hemorrhage, mass effect, or evidence of acute territorial ischemia by CT penny hillman. Electronically signed by: Zechariah Barrett M.D. 01/25/2019 6:39 AM
[2019-01-25 06:44] LABS: Mean Corpuscular Hgb Conc 34.7 g/dL (32-36)
--- NOTE | 2019-01-25 06:44 | Ultrasound Report ---
US gallbladder CLINICAL HISTORY: Right upper quadrant abdominal pain. Fall. COMPARISON STUDY: No previous studies for comparison. FINDINGS: This exam is mildly compromised by suboptimal penetration. No hepatic lesions are present. There is no biliary ductal dilatation. The common bile duct measures 4 mm in caliber. The pancreas is partially obscured overlying bowel gas but no abnormality is identified. There are gallstones within the gallbladder. The gallbladder is contracted. There is no wall thickening or pericholecystic fluid . No sonographic Varghese sign was reported. There is no right hydronephrosis. IMPRESSION: 1. Cholelithiasis. No evidence for acute cholecystitis. 2. No biliary ductal dilatation. Electronically signed by: Eliseo Mcfarlane M.D. 01/25/2019 6:43 AM
--- NOTE | 2019-01-25 07:04 | CT Scan Report ---
CT SCAN OF THE CHEST WITH IV CONTRAST CLINICAL HISTORY: Trauma. Fall. COMPARISON STUDY: No priors. TECHNIQUE: Following the IV administration of 93 cc of Optiray 320, CT scan of the thorax was perform ed from the thoracic inlet to the upper abdomen. Images are reviewed in the axial, sagittal, and marah nal planes. IV contrast was administered without complication. A dose lowering technique was utilize d adhering to the principles of ALARA. The examination is degraded by streak artifact from the arms w hich could not be elevated above the chest as well as by motion artifact. FINDINGS: Thyroid: Imaged portions of the thyroid gland are normal in size and attenuation. A subcentimeter low -attenuation nodule is incidentally noted in the right lobe. Thoracic aorta: There is atherosclerotic calcification of the thoracic aorta, which is normal in boo stefany and demonstrates standard 3-vessel arch anatomy. No dissection is seen. Pulmonary vasculature: The pulmonary trunk is normal in caliber. There are no filling defects identif ied in the central pulmonary vessels to indicate pulmonary embolus. Note that this examination was no t protocoled for evaluation of the pulmonary arteries. Heart: The heart is normal in size and without pericardial effusion. The coronary arteries are densel y calcified. Lungs and pleural spaces: Evaluation of the lung parenchyma is degraded by motion artifact. There is no airspace consolidation, pleural effusion, or pneumothorax. Scarring/atelectasis is present at both lung bases. Minimal secretions are noted in the trachea. The central airways appear clear. Mediastinum: There is no mediastinal hematoma or lymphadenopathy. Disha: Clear. Axillae: There is no axillary lymphadenopathy. Upper abdomen: There is a small hiatal hernia. Calcified gallstones are noted. The partially imaged k idneys demonstrate cortical atrophy with a 1.6 cm cyst noted on the left. A duodenal diverticulum is noted. Skeletal structures: The skeletal structures are osteopenic. The bony thorax appears intact. Degenera tive change mild hyperkyphosis is noted throughout the thoracic spine. There is chronic posttraumatic deformity of the sternum. There are chronic/healed left-sided rib fractures. No lytic or blastic bon y lesions are seen. IMPRESSION: 1. There is no acute posttraumatic intrathoracic abnormality. 2. No airspace consolidation, pleural effusion, or pneumothorax is seen. 3. Cholelithiasis. 4. Additional findings as above. Electronically signed by: Zechariah Barrett M.D. 01/25/2019 7:02 AM
[2019-01-25 07:32] LABS: Calcium 8.4 mg/dl (8.5-10.1); Creatinine Clr Calc Pharmacy 63.9 ml/min; Est GFR (African American) 96.1; Est GFR (Non-African American) 82.9; Magnesium 2.1 mg/dl (1.8-2.4)
[2019-01-25 07:36] LABS: Albumin Globulin Ratio 0.7 (0.9-2); Bilirubin,Total 0.7 mg/dl (0.2-1); Globulin 4.5 gm/dl (2.5-4.0); Total Protein 7.5 gm/dl (6.4-8.2); Troponin I 0.126 ng/ml (0-0.045)
[2019-01-25 08:04] LABS: INR 3.6 (0.9-1.1); Prothrombin Time 33.5 Seconds (9.0-12.0)
[2019-01-25] MEDS: OMEGA-3 (PURIFIED FISH OIL) 1 GM CAP PO SCH ×2 (08:21→21:23)
[2019-01-25] MEDS: ISOSORBIDE MONO EXTENDED REL 30 MG TABCR PO SCH (08:21)
[2019-01-25] MEDS: TAMSULOSIN HCL 0.4 MG CAP PO SCH (08:21)
[2019-01-25] MEDS: ATORVASTATIN 20 MG TAB PO SCH (08:21)
[2019-01-25] MEDS: PHENYTOIN SODIUM ER 30 MG CAP PO SCH ×2 (08:21→21:21)
[2019-01-25] MEDS: PHENYTOIN SODIUM ER 100 MG CAP PO SCH ×2 (08:21→21:19)
[2019-01-25] MEDS: METOPROLOL SUCC 25MG EXT REL TAB PO SCH (08:22)
[2019-01-25] MEDS: CYANOCOBALAMIN 500 MCG TABLET (VITAMIN B-12) PO SCH (08:22)
[2019-01-25] MEDS: FINASTERIDE 5 MG TAB PO SCH (08:22)
[2019-01-25] MEDS: CHOLECALCIFEROL 1,000 UNITS TAB PO SCH (08:22)
[2019-01-25] MEDS: INSULIN ASPART 100 UNITS/ML 3 ML PEN SC SCH ×4 (08:49→21:56)
[2019-01-25] MEDS: ACETAMINOPHEN 325 MG TAB PO PRN ×2 (08:54→17:14)
[2019-01-25 10:16] LABS: Influenza A virus by PCR Neg for Influ A (Neg); Influenza B virus by PCR Neg for Influ B (Neg)
--- NOTE | 2019-01-25 12:50 | History & Physical Bridge Note ---
Date of Service January 25, 2019 History & Physical Bridge Note Patient seen and examined today. He is in no distress, reports feeling fairly well. No major concerns voiced. He was febrile this morning. Possible sources include UTI vs. viral. No rashes/redness to indicate cellulitis. - Continue ceftriaxone - Follow cultures
[2019-01-25] MEDS: POTASSIUM CHLORIDE PWD 20 MEQ PACK PO SCH ×2 (14:35→21:20)
--- NOTE | 2019-01-25 20:46 | Billing Data ---
Coding Level of Care Code 50829 OBS Care - Level 3
[2019-01-25] MEDS: MIRTAZAPINE TAB 15 MG TAB PO SCH (21:22)
[2019-01-25] MEDS: LATANOPROST 0.005% OP SOLN 2.5 ML BTL OP SCH (21:22)
[2019-01-26] MEDS: cefTRIAXone SODIUM 1,000 MG in DEXTROSE 5% 50 ML IV SCH (01:46)
[2019-01-26] MEDS: PATIENT'S HEIGHT AND/OR WEIGHT NEEDED SCH (07:08)
[2019-01-26 07:38] LABS: Hematocrit (blood only) 38.3 % (42-52); Hemoglobin 13.7 g/dL (14.0-18.0); Mean Corpuscular Hemoglobin 32.5 pg (25-34); Mean Corpuscular Hgb Conc 35.8 g/dL (32-36); Platelet Count 162 K/uL (130-400); RDW Coefficient of Variation 12.8 % (11.5-14.5); RDW Standard Deviation 42.3 fL (36.4-46.3); Red Blood Count 4.21 M/uL (4.7-6.1); White Blood Count 9.66 K/uL (4.8-10.8)
[2019-01-26 07:48] LABS: INR 3.3 (0.9-1.1); Prothrombin Time 30.8 Seconds (9.0-12.0)
[2019-01-26] MEDS: FINASTERIDE 5 MG TAB PO SCH (08:10)
[2019-01-26] MEDS: CYANOCOBALAMIN 500 MCG TABLET (VITAMIN B-12) PO SCH (08:10)
[2019-01-26] MEDS: TAMSULOSIN HCL 0.4 MG CAP PO SCH (08:10)
[2019-01-26] MEDS: PHENYTOIN SODIUM ER 100 MG CAP PO SCH ×2 (08:10→20:22)
[2019-01-26] MEDS: ISOSORBIDE MONO EXTENDED REL 30 MG TABCR PO SCH (08:11)
[2019-01-26] MEDS: POTASSIUM CHLORIDE PWD 20 MEQ PACK PO SCH (08:11)
[2019-01-26] MEDS: CHOLECALCIFEROL 1,000 UNITS TAB PO SCH (08:11)
[2019-01-26] MEDS: PHENYTOIN SODIUM ER 30 MG CAP PO SCH ×2 (08:11→20:22)
[2019-01-26] MEDS: METOPROLOL SUCC 25MG EXT REL TAB PO SCH (08:12)
[2019-01-26] MEDS: ATORVASTATIN 20 MG TAB PO SCH (08:12)
[2019-01-26] MEDS: OMEGA-3 (PURIFIED FISH OIL) 1 GM CAP PO SCH ×3 (08:13→20:53)
[2019-01-26 08:14] LABS: Calcium 8.8 mg/dl (8.5-10.1); Creatinine Clr Calc Pharmacy 71.1 ml/min; Est GFR (African American) 100.1; Est GFR (Non-African American) 86.4; Magnesium 1.5 mg/dl (1.8-2.4); Phosphorus 2.4 mg/dl (2.5-4.9); Potassium 3.6 mmol/L (3.5-5.1)
[2019-01-26] MEDS: INSULIN ASPART 100 UNITS/ML 3 ML PEN SC SCH ×4 (08:44→20:33)
[2019-01-26] MEDS: MAGNESIUM SULFATE / D5W 1 GM/100 ML BAG IV SCH ×2 (10:45→11:40)
[2019-01-26] MEDS: POT PHOSPHATE MONOBASIC W/ SOD TAB PO SCH ×3 (13:00→20:21)
[2019-01-26] MEDS ORDERED: NORMOSOL-R 1,000 ML IV ONE (15:33)
--- NOTE | 2019-01-26 15:57 | Hospitalist Progress Note ---
Date of Service January 26, 2019 Assessment & Plan (1) Acute UTI: UA on 01/24 indicated infection with WBCs, leuk esterase. - Urine culture pending - Continue ceftriaxone (2) Falls: Four falls at home including a fairly hard fall onto driveway per . CT scans only showed a chronic left L3 transverse process fracture. - Pain control - PT/OT (3) Dementia: Severe. Per his baseline is non-conversational. He will speak, but not really make sense. He does not know name, season, current events, etc. - CM for likely placement assistance - Palliative care consult (4) CVA (cerebral vascular accident): CVA in 2001. Dilantin level was 11.1 on 01/25 (lower end of normal). - Continue home Dilantin (5) Diabetes: No prior A1c. reports the patient was on metformin. - Get A1c - Sliding scale insulin (6) Pulmonary emboli: Prior history per family. - INR is 3.1 today. - Hold warfarin for now - No sign of bleeding, so will not reverse. (7) HTN (hypertension): BP running 120/80 - 150/70. Lone low BP today at noon, but this rebounded spontaneously. - Continue home meds (8) HLD (hyperlipidemia): - Continue atorvastatin (9) History of NV (myocardial infarction): - Continue statin - Not on ASA/Plavix, though given age & dementia, benefit is unclear. (10) History of DVT (deep vein thrombosis): - As above for PE. - INR was 3.1 on 01/26. I spoke with the daughter and today. They do not believe he would want extraordinary measures if his heart stopped or he stopped breathing. Subjective He is unable to answer any questions for me. He does respond, but only with unintelligible responses. Review of Systems Review of Systems: Unobtainable due to cognitive status Physical Exam Constitutional: + cachectic, + frail appearing and + lethargic Eyes: EOM intact bilaterally; no conjunctival abnormality ENMT: external ear and nose normal, oropharynx normal Neck: trachea midline, no thyromegaly normal visual inspection Respiratory: normal respiratory effort, lungs clear to auscultation no respiratory distress Cardiovascular: Rate/Rhythm: regular rhythm and + tachycardic Heart Sounds: normal S1 and normal S2; no murmur Gastrointestinal (Abdomen): Inspection/Auscultation: abdomen normal to inspection; abdomen not distended Musculoskeletal: no cyanosis or clubbing, extremities motor strength 5/5 Skin: no rashes, warm and dry Neurologic: moves all extremities and awake Psychiatric: Orientation: alert and cooperative; + not oriented to person Results & Data Vital Signs (Past 12 Hours) Vital Signs Temp Pulse Pulse Resp BP BP Pulse Ox 01/26/19 14:51 106 H 01/26/19 11:50 110 H 16 93/57 L 75/49 L 97 01/26/19 07:30 36.3 C L 97 H 17 156/95 H 95 01/26/19 07:24 91 H 01/26/19 07:11 36.7 C 96 H 18 148/87 H 97 01/26/19 04:42 85 01/26/19 04:39 36.9 C 93 H 18 164/89 H 95 PG Care Time/CCT Total # of Minutes Spent Total Time Spent with Patient: Total time spent is greater than 50% in coordination of care (as documented) at patient's floor/unit and/or counseling patient:
[2019-01-26] MEDS ORDERED: ACETAMINOPHEN 65 ML IV PRN (15:58)
[2019-01-26] MEDS ORDERED: MoRPHine SULFATE 2 MG/ML CARP IV PRN (15:58)
[2019-01-26] MEDS: LATANOPROST 0.005% OP SOLN 2.5 ML BTL OP SCH (20:20)
[2019-01-26] MEDS: MIRTAZAPINE TAB 15 MG TAB PO SCH (20:21)
[2019-01-27] MEDS: cefTRIAXone SODIUM 1,000 MG in DEXTROSE 5% 50 ML IV SCH (00:58)
[2019-01-27 07:56] LABS: Hematocrit (blood only) 36.5 % (42-52); Hemoglobin 12.7 g/dL (14.0-18.0); Mean Corpuscular Hemoglobin 31.4 pg (25-34); Mean Corpuscular Hgb Conc 34.8 g/dL (32-36); Mean Corpuscular Volume 90.1 fL (80-100); Platelet Count 184 K/uL (130-400); RDW Coefficient of Variation 12.9 % (11.5-14.5); RDW Standard Deviation 42.5 fL (36.4-46.3); Red Blood Count 4.05 M/uL (4.7-6.1); White Blood Count 8.92 K/uL (4.8-10.8)
[2019-01-27 08:05] LABS: Prothrombin Time 19.5 Seconds (9.0-12.0)
[2019-01-27 08:33] LABS: BUN Creatinine Ratio 20.3 (10-20); Calcium 8.4 mg/dl (8.5-10.1); Creatinine Clr Calc Pharmacy 60.5 ml/min; Est GFR (African American) 94.1; Est GFR (Non-African American) 81.2; Potassium 3.3 mmol/L (3.5-5.1)
[2019-01-27 08:53] LABS: Phosphorus 3.1 mg/dl (2.5-4.9)
[2019-01-27] MEDS: PHENYTOIN SODIUM ER 30 MG CAP PO SCH ×2 (09:10→20:44)
[2019-01-27] MEDS: PHENYTOIN SODIUM ER 100 MG CAP PO SCH ×2 (09:10→20:45)
[2019-01-27] MEDS: POT PHOSPHATE MONOBASIC W/ SOD TAB PO SCH (09:10)
[2019-01-27] MEDS: TAMSULOSIN HCL 0.4 MG CAP PO SCH (09:11)
[2019-01-27] MEDS: CYANOCOBALAMIN 500 MCG TABLET (VITAMIN B-12) PO SCH (09:12)
[2019-01-27] MEDS: ATORVASTATIN 20 MG TAB PO SCH (09:12)
[2019-01-27] MEDS: FINASTERIDE 5 MG TAB PO SCH (09:12)
[2019-01-27] MEDS: CHOLECALCIFEROL 1,000 UNITS TAB PO SCH (09:12)
[2019-01-27] MEDS: ISOSORBIDE MONO EXTENDED REL 30 MG TABCR PO SCH (09:14)
[2019-01-27] MEDS: METOPROLOL SUCC 25MG EXT REL TAB PO SCH (09:14)
[2019-01-27] MEDS: INSULIN ASPART 100 UNITS/ML 3 ML PEN SC SCH ×4 (09:15→20:45)
[2019-01-27] MEDS: OMEGA-3 (PURIFIED FISH OIL) 1 GM CAP PO SCH ×2 (09:15→20:47)
--- NOTE | 2019-01-27 13:49 | Hospitalist Progress Note ---
Date of Service January 27, 2019 Assessment & Plan (1) Bacteremia: Blood culture from 01/25 growing Gram(+) cocci in clusters. - Repeat blood cultures tomorrow - Switched to vancomycin - Of note, our antibiogram for 2017 shows E. faecium only 58% sensitive to vanc, so antibiotic should be switched if E. faecium grows. - Holding on TTE as UTD indicates endocarditis is fairly unlikely with Enteroccocus spc. If multiple cultures grow positive, or if it is a Staph spc, may need TTE. (2) Acute UTI: UA on 01/24 indicated infection with WBCs, leuk esterase. - Urine culture from 01/24 growing Gram(+) cocci and Staph spc. - Stopped ceftriaxone on 01/27 and switched to vancomycin in discussion with pharmacy (3) Falls: Four falls at home including a fairly hard fall onto driveway per . CT scans only showed a chronic left L3 transverse process fracture. - Pain control - PT/OT (4) Dementia: Severe. Per his baseline is non-conversational. He will speak, but not really make sense. He does not know name, season, current events, etc. - CM for likely placement assistance - Palliative care consult (5) CVA (cerebral vascular accident): CVA in 2001. Dilantin level was 11.1 on 01/25 (lower end of normal). - Continue home Dilantin (6) Diabetes: A1c pending. reports the patient was on metformin. - Sliding scale insulin (7) Pulmonary emboli: Prior history per family. - INR went from 3.1 to 2.0 today. - Restart warfarin today. (8) HTN (hypertension): BP running 120/80 today. Lone low BP on 01/26, but rebounded spontaneously. Not sure if this was a true read or not. - Continue home meds (9) HLD (hyperlipidemia): - Continue atorvastatin (10) History of AR (myocardial infarction): - Continue statin - Not on ASA/Plavix, though given age & dementia, benefit is unclear. (11) History of DVT (deep vein thrombosis): - As above for PE. - INR was 2.0 on 01/27. DNR/DNI: I spoke with the daughter and on 01/26. They do not believe he would want extraordinary measures if his heart stopped or he stopped breathing. Subjective Doing better this morning and revisit in the afternoon. He is more alert and awake. He still cannot offer any ROS given his dementia. Review of Systems Review of Systems: Unobtainable due to cognitive status Physical Exam Constitutional: + cachectic and + frail appearing; not lethargic Eyes: EOM intact bilaterally; no conjunctival abnormality ENMT: external ear and nose normal, oropharynx normal Neck: trachea midline, no thyromegaly normal visual inspection Respiratory: normal respiratory effort, lungs clear to auscultation no respiratory distress Cardiovascular: Rate/Rhythm: regular rhythm and + tachycardic Heart Sounds: normal S1 and normal S2; no murmur Gastrointestinal (Abdomen): Inspection/Auscultation: abdomen normal to inspection; abdomen not distended Musculoskeletal: no cyanosis or clubbing, extremities motor strength 5/5 Skin: no rashes, warm and dry Neurologic: moves all extremities and awake Psychiatric: Orientation: alert and cooperative; + not oriented to person Results & Data Vital Signs (Past 12 Hours) Vital Signs Temp Pulse Pulse Resp BP BP Pulse Ox 01/27/19 12:03 36.5 C 102 H 18 118/78 92 01/27/19 10:00 88 01/27/19 07:40 37 C 95 H 18 156/82 H 93 01/27/19 03:00 37.2 C 84 18 159/88 H 94 PG Care Time/CCT Total # of Minutes Spent Total Time Spent with Patient: Total time spent is greater than 50% in coordination of care (as documented) at patient's floor/unit and/or counseling patient:
[2019-01-27] MEDS ORDERED: VANCOMYCIN CONSULT ACTIVE PRN (14:05)
[2019-01-27] MEDS ORDERED: VANCOMYCIN HCL 1,500 MG in SODIUM CHLORIDE 0.9% 500 ML IV ONE (14:15)
--- NOTE | 2019-01-27 15:18 | Pharmacy Report ---
Pharmacy Abx Initial Consult - Date of Service January 27, 2019 - Pharmacy Dosing Scope Date of Consult: 01/27/19 Consultation requested by: Dr. Sahni Pharmacy is consulted to initiate vancomycin IV dosing therapy, order appropriate labs and adjust drug dose/frequency. - Subjective The patient is a 88 year old M admitted on 01/25/19 02:18. - Objective Height: 5 ft 7 in Weight: 64.1 kg Vital Signs (Past 12hrs): Vital Signs Temp Pulse Pulse Resp BP Pulse Ox 01/27/19 12:03 36.5 C 102 H 18 118/78 92 01/27/19 10:00 88 01/27/19 07:40 37 C 95 H 18 156/82 H 93 Lab Results (24hrs): Laboratory Tests (24 Hours) 01/27/19 01/27/19 07:24 07:24 WBC 8.92 Creatinine 0.78 Est Cr Clr Drug Dosing 60.5 Micro Results: 01/27/19 14:27 Aerobic Blood Culture - Pending Blood Anaerobic Blood Culture - Pending 01/27/19 14:05 Aerobic Blood Culture - Pending Blood Anaerobic Blood Culture - Pending - Assessment & Plan Assessment 88 year old M receiving empiric ceftriaxone 1 g IV q24h being switched to vancomycin for positive blood culture (1 of 2) - gram positive cocci in clusters. Suspected that bacteremia is secondary to UTI (urine culture growing 2 organisms: gram positive cocci and Staphylococcus species). Awaiting further speciation and susceptibilities for these organisms - will most likely be able to de-escalate at that time. Patient's PMH includes severe dementia, history of CVA, history of falls, history of DVT, diabetes, hypertension, and hyperlipidemia. Microbiology: * Blood x 2 (01/25): 1 of 2: gram positive cocci in clusters * Blood x 2 (01/27): pending * Urine (01/24): gram positive cocci, Staphylococcus species (2 organisms) Plan Vancomycin IV * Estimated PK Parameters: Vd 0.7 L/kg, Nicolás 0.055 hr-1, t1/2 12.6 hr * Loading dose: 1500 mg (23 mg/kg) * Maintenance dose: 750 mg IV (12 mg/kg) every 12 hours to achieve AUC:ALBER > 400 * Trough level ordered for 01/29/19 at 1330 Pharmacy will continue to follow and will adjust dose/frequency as necessary. Thank you.
[2019-01-27] MEDS: WARFARIN SOD 4 MG TAB PO SCH (15:44)
[2019-01-27] MEDS: POTASSIUM CHLORIDE PWD 20 MEQ PACK PO SCH (20:45)
[2019-01-27] MEDS: MIRTAZAPINE TAB 15 MG TAB PO SCH (20:48)
[2019-01-27] MEDS: LATANOPROST 0.005% OP SOLN 2.5 ML BTL OP SCH (20:49)
[2019-01-28] MEDS: VANCOMYCIN HCL 750 MG in SODIUM CHLORIDE 0.9% 250 ML IV SCH ×2 (02:10→13:34)
[2019-01-28 05:48] LABS: Estimated Average Glucose 111 mg/dl; Hemoglobin A1C 5.5 % (4.5-5.6)
[2019-01-28 06:27] LABS: Hemoglobin 11.8 g/dL (14.0-18.0); Mean Corpuscular Hemoglobin 32.2 pg (25-34); Mean Corpuscular Hgb Conc 34.7 g/dL (32-36); Mean Corpuscular Volume 92.6 fL (80-100); Mean Platelet Volume 10.1 fL (7.4-10.4); Platelet Count 214 K/uL (130-400); RDW Standard Deviation 43.9 fL (36.4-46.3); Red Blood Count 3.67 M/uL (4.7-6.1); White Blood Count 8.89 K/uL (4.8-10.8)
[2019-01-28 06:35] LABS: INR 1.4 (0.9-1.1); Prothrombin Time 13.8 Seconds (9.0-12.0)
[2019-01-28 06:57] LABS: BUN Creatinine Ratio 21.7 (10-20); Calcium 8.5 mg/dl (8.5-10.1); Creatinine Clr Calc Pharmacy 55.2 ml/min; Est GFR (African American) 89.9; Est GFR (Non-African American) 77.6; Potassium 3.5 mmol/L (3.5-5.1)
[2019-01-28] MEDS: FINASTERIDE 5 MG TAB PO SCH (09:15)
[2019-01-28] MEDS: CYANOCOBALAMIN 500 MCG TABLET (VITAMIN B-12) PO SCH (09:15)
[2019-01-28] MEDS: METOPROLOL SUCC 25MG EXT REL TAB PO SCH (09:15)
[2019-01-28] MEDS: TAMSULOSIN HCL 0.4 MG CAP PO SCH (09:16)
[2019-01-28] MEDS: ATORVASTATIN 20 MG TAB PO SCH (09:16)
[2019-01-28] MEDS: OMEGA-3 (PURIFIED FISH OIL) 1 GM CAP PO SCH ×3 (09:16→21:39)
[2019-01-28] MEDS: ISOSORBIDE MONO EXTENDED REL 30 MG TABCR PO SCH (09:16)
[2019-01-28] MEDS: CHOLECALCIFEROL 1,000 UNITS TAB PO SCH (09:16)
[2019-01-28] MEDS: POTASSIUM CHLORIDE PWD 20 MEQ PACK PO SCH ×2 (09:17→21:31)
[2019-01-28] MEDS: PHENYTOIN SODIUM ER 30 MG CAP PO SCH ×2 (09:17→21:34)
[2019-01-28] MEDS: PHENYTOIN SODIUM ER 100 MG CAP PO SCH ×2 (09:17→21:34)
[2019-01-28] MEDS: INSULIN ASPART 100 UNITS/ML 3 ML PEN SC SCH ×4 (09:22→21:12)
--- NOTE | 2019-01-28 13:52 | Hospitalist Progress Note ---
Date of Service January 28, 2019 Assessment & Plan (1) Bacteremia: * Blood culture from 01/25 growing Gram(+) cocci in clusters. * Repeat blood cx from 01/27 pending * Continue Vancomycin as per discussion with pharmacy(was originally on ceftriaxone)--> Of note, our antibiogram for 2016 shows E. faecium only 58% sensitive to vanc, so antibiotic should be switched if E. faecium grows. * - Holding on TTE as UTD indicates endocarditis is fairly unlikely with Enteroccocus spc. If multiple cultures grow positive, or if it is a Staph spc, may need TTE. --> per discussion with family, patient would not want heroic measures taken -- will hold off on TTE for now * Continue to monitor (2) Acute UTI: * Improving -- patient with decreased dysuria * UA on 01/24 indicated infection with WBCs, leuk esterase. * Culture preliminary with gram + cocci and staph species * Continue vancomycin as above, as patient initially on ceftriaxone (3) Falls: * Four falls at home including a fairly hard fall onto driveway per . CT scans only showed a chronic left L3 transverse process fracture. * Pain control * PT/OT -- re-eval today for possible d/c to SNF * Per discussion with , patient and daughter -- originally with wishes to return home with home health, although referrals being made to [facility] for additional rehab * Palliative Care consult placed today -- discussion regarding goals of care tomorrow (4) Dementia: * Severe. Per his baseline is non-conversational. * CM for likely placement assistance * Palliative care consult placed today -- will be evaluated tomorrow (5) CVA (cerebral vascular accident): * CVA in 2001. Dilantin level was 11.1 on 01/25 (lower end of normal). * Continue home Dilantin (6) Diabetes: * A1c 5.5 * Patient previously on metformin * SSI while inpatient (7) Pulmonary emboli: * Prior history per family. * INR went from 3.1 to 2.1 after holding coumadin * INR 1.4 today --> will continue to monitor as coumadin restarted yesterday, 01/27 * Continue to monitor (8) HTN (hypertension): * Lone low BP on 01/26, but rebounded spontaneously. Not sure if this was a true read or not. * Continue home meds * BPs have been running on the high side, with tachycardia -- will increase metoprolol from 12.5mg to 25mg * Continue to monitor (9) HLD (hyperlipidemia): * Continue atorvastatin (10) History of AL (myocardial infarction): * Continue statin * Not on ASA/Plavix, though given age & dementia, benefit is unclear. (11) History of DVT (deep vein thrombosis): * As above for PE. * INR was 1.4 today DNR/DNI: Discussion with Dr. Sahni and daughter/ on 01/26. They do not believe he would want extraordinary measures if his heart stopped or he stopped breathing. Today, continues to express the same. Dispo: referral for [facility] placed, need updated PT/OT -- ? possible discharge monday Supervising Physician Co-Signing Physician Notes Attending Attestation: Chart reviewed in detail, care plan d/w JOSEPH Dior. I agree w/ the parham components of her documentation. 88yo male with septicemia 2nd to staph species. Source- urine. Repeat blood cx's pending. Hemodynamically stable with acceptable labs. Continue IV vanco while awaiting speciation. Pharmacy managing vanco and trough levels. Family interested in hearing about palliative care; thus, defer on checking for SBE with echo for now. Warfarin resumed (was supratherapeutic at presentation); daily INR while here. SNF placement likely. Jordy Carmona MD Subjective Patient evaluated at bedside this afternoon with and daughter at bedside. Patient appetite increased today. He confirms e still has some burning with urination but it is much improved from the previous days. He also admits to back pain, which has been present since admission. Discussed wedge deformity of superior endplate T1 on imaging and that is likely the origin of his pain. Patient and were originally hopeful for patient to be discharged with home health, but and daughter both in agreement that the patient is not strong enough to return home and are considering [facility] at discharge. Discussion was also had regarding palliative care consult with discussion moving forward regarding goals of care. Daughter and available between 4:30-5pm tomorrow, but will be together and are available by phone. Review of Systems Constitutional: no fever and no chills Eyes: no diplopia and no worsening vision Ear, Nose, Mouth, Throat: no sore throat and no dysphagia Respiratory: no cough and no dyspnea Cardiovascular: no chest pain, no palpitations and no edema Gastrointestinal: no abdominal pain, no nausea, no vomiting, no constipation and no diarrhea/loose stools Genitourinary: + dysuria; no hematuria Musculoskeletal: + back pain (upper back pain) Integumentary: no rash and no lesions Physical Exam Constitutional: + cachectic and + frail appearing; no acute distress Eyes: PERRL, conjunctivae normal, anicteric sclerae Neck: trachea midline, no thyromegaly Respiratory: normal respiratory effort, lungs clear to auscultation no respiratory distress Cardiovascular: Rate/Rhythm: + tachycardic Heart Sounds: normal S1 and normal S2; no murmur Gastrointestinal (Abdomen): normal bowel sounds, soft, nontender, no hepatosp lenomegaly Musculoskeletal: no cyanosis or clubbing, extremities motor strength 5/5 Skin: no rashes, warm and dry Neurologic: moves all extremities Psychiatric: Orientation: alert, oriented to person and cooperative Lymphatic: no cervical or axillary lymphadenopathy Results & Data Vital Signs (Past 12 Hours) Vital Signs Temp Pulse Pulse Resp BP BP Pulse Ox 01/28/19 11:06 36.9 C 104 H 18 157/89 H 95 01/28/19 07:44 89 01/28/19 07:24 37.1 C 92 H 16 187/92 H 94 01/28/19 03:53 37.2 C 96 H 20 150/83 H 95 Laboratory Results 01/28/19 01/28/19 01/28/19 Range/Units 11:29 07:38 06:13 WBC (4.8-10.8) K/uL RBC (4.7-6.1) M/uL Hgb (14.0-18.0) g/dL Hct (42-52) % MCV (80-100) fL MCH (25-34) pg MCHC (32-36) g/dL RDW Std Deviation (36.4-46.3) fL RDW Coeff of Patience (11.5-14.5) % Plt Count (130-400) K/uL MPV (7.4-10.4) fL PT (9.0-12.0) Seconds INR (0.9-1.1) Sodium 138 (136-145) mmol/L Potassium 3.5 (3.5-5.1) mmol/L Chloride 104 (98-107) mmol/L Carbon Dioxide 28 (21-32) mmol/L Anion Gap 6.0 (3-11) BUN 19 H (7-18) mg/dl Creatinine 0.87 (0.6-1.4) mg/dl Est Cr Clr Drug Dosing 55.2 ml/min Est GFR ( Amer) 89.9 Est GFR (Non-Af Amer) 77.6 BUN/Creatinine Ratio 21.7 H (10-20) Glucose 104 H (70-99) mg/dl POC Glucose 175 H 103 H (70-99) Estimat Average Glucose mg/dl Hemoglobin A1c (4.5-5.6) % Calcium 8.5 (8.5-10.1) mg/dl 01/28/19 01/28/19 01/27/19 Range/Units 06:13 06:13 20:44 WBC 8.89 (4.8-10.8) K/uL RBC 3.67 L (4.7-6.1) M/uL Hgb 11.8 L (14.0-18.0) g/dL Hct 34.0 L (42-52) % MCV 92.6 (80-100) fL MCH 32.2 (25-34) pg MCHC 34.7 (32-36) g/dL RDW Std Deviation 43.9 (36.4-46.3) fL RDW Coeff of Patience 13.0 (11.5-14.5) % Plt Count 214 (130-400) K/uL MPV 10.1 (7.4-10.4) fL PT 13.8 H (9.0-12.0) Seconds INR 1.4 H (0.9-1.1) Sodium (136-145) mmol/L Potassium (3.5-5.1) mmol/L Chloride (98-107) mmol/L Carbon Dioxide (21-32) mmol/L Anion Gap (3-11) BUN (7-18) mg/dl Creatinine (0.6-1.4) mg/dl Est Cr Clr Drug Dosing ml/min Est GFR ( Amer) Est GFR (Non-Af Amer) BUN/Creatinine Ratio (10-20) Glucose (70-99) mg/dl POC Glucose 260 H (70-99) Estimat Average Glucose mg/dl Hemoglobin A1c (4.5-5.6) % Calcium (8.5-10.1) mg/dl 01/27/19 01/27/19 Range/Units 16:54 07:24 WBC (4.8-10.8) K/uL RBC (4.7-6.1) M/uL Hgb (14.0-18.0) g/dL Hct (42-52) % MCV (80-100) fL MCH (25-34) pg MCHC (32-36) g/dL RDW Std Deviation (36.4-46.3) fL RDW Coeff of Patience (11.5-14.5) % Plt Count (130-400) K/uL MPV (7.4-10.4) fL PT (9.0-12.0) Seconds INR (0.9-1.1) Sodium (136-145) mmol/L Potassium (3.5-5.1) mmol/L Chloride (98-107) mmol/L Carbon Dioxide (21-32) mmol/L Anion Gap (3-11) BUN (7-18) mg/dl Creatinine (0.6-1.4) mg/dl Est Cr Clr Drug Dosing ml/min Est GFR ( Amer) Est GFR (Non-Af Amer) BUN/Creatinine Ratio (10-20) Glucose (70-99) mg/dl POC Glucose 221 H (70-99) Estimat Average Glucose 111 mg/dl Hemoglobin A1c 5.5 (4.5-5.6) % Calcium (8.5-10.1) mg/dl PG Care Time/CCT Total # of Minutes Spent Total Time Spent with Patient: Total time spent is greater than 50% in coordination of care (as documented) at patient's floor/unit and/or counseling patient:
[2019-01-28] MEDS: WARFARIN SOD 4 MG TAB PO SCH (16:29)
[2019-01-28] MEDS: LATANOPROST 0.005% OP SOLN 2.5 ML BTL OP SCH (21:35)
[2019-01-28] MEDS: MIRTAZAPINE TAB 15 MG TAB PO SCH (21:35)
[2019-01-29] MEDS: VANCOMYCIN HCL 750 MG in SODIUM CHLORIDE 0.9% 250 ML IV SCH ×2 (02:36→14:42)
[2019-01-29 07:43] LABS: Hematocrit (blood only) 35.1 % (42-52); Hemoglobin 12.1 g/dL (14.0-18.0); Mean Corpuscular Hemoglobin 32.2 pg (25-34); Mean Corpuscular Hgb Conc 34.5 g/dL (32-36); Mean Corpuscular Volume 93.4 fL (80-100); Platelet Count 228 K/uL (130-400); RDW Coefficient of Variation 13.1 % (11.5-14.5); RDW Standard Deviation 44.7 fL (36.4-46.3); Red Blood Count 3.76 M/uL (4.7-6.1); White Blood Count 6.84 K/uL (4.8-10.8)
[2019-01-29 08:14] LABS: BUN Creatinine Ratio 19.9 (10-20); Creatinine Clr Calc Pharmacy 62.5 ml/min; Est GFR (African American) 95.6; Est GFR (Non-African American) 82.5; Potassium 3.7 mmol/L (3.5-5.1)
[2019-01-29] MEDS: ISOSORBIDE MONO EXTENDED REL 30 MG TABCR PO SCH (08:39)
[2019-01-29] MEDS: CHOLECALCIFEROL 1,000 UNITS TAB PO SCH (08:39)
[2019-01-29] MEDS: ATORVASTATIN 20 MG TAB PO SCH (08:39)
[2019-01-29] MEDS: CYANOCOBALAMIN 500 MCG TABLET (VITAMIN B-12) PO SCH (08:40)
[2019-01-29] MEDS: FINASTERIDE 5 MG TAB PO SCH (08:40)
[2019-01-29] MEDS: TAMSULOSIN HCL 0.4 MG CAP PO SCH (08:40)
[2019-01-29] MEDS: METOPROLOL SUCC 25MG EXT REL TAB PO SCH (08:40)
[2019-01-29] MEDS: PHENYTOIN SODIUM ER 100 MG CAP PO SCH ×2 (08:40→20:50)
[2019-01-29] MEDS: PHENYTOIN SODIUM ER 30 MG CAP PO SCH ×2 (08:41→20:50)
[2019-01-29] MEDS: INSULIN ASPART 100 UNITS/ML 3 ML PEN SC SCH ×4 (08:43→20:51)
[2019-01-29] MEDS: OMEGA-3 (PURIFIED FISH OIL) 1 GM CAP PO SCH ×2 (08:48→20:52)
[2019-01-29 09:00] LABS: INR 1.3 (0.9-1.1); Prothrombin Time 13.5 Seconds (9.0-12.0)
--- NOTE | 2019-01-29 11:51 | Palliative Care Consultation ---
Date of Consultation January 29, 2019 Assessment & Plan (1) Goals of care, counseling/discussion: -88 year old male patient who has advanced dementia, presented to the hospital after a fall. He has a UTI and bacteremia-- staph. He is on IV abx. Palliative care is consulted to discuss goals of care and provide support to family. I met with the patient, his Philippe, and daughter Sury. At home, patient was still somewhat functional-- able to walk with assistance, was continent of bowel and bladder, but needed help with all ADLs. Patient's was providing all of his care at home, and the amount of care was increasing. Philippe states that patient does not talk much, voice is weak. He eats pureed foods and does pretty well. He has had no previous hospitalizations here and thus far has not had many complications of dementia. -We talked about what to expect in the future with dementia: continued decline in mental and functional status, poor PO intake, UTIs, pneumonias, incontinence, etc. Patient's and daughter both verbalize understanding. -Family is in agreement that patient will need SNF placement after hospital. Skilled initially with likely transition to long-term care. We talked about the option of hospice in the future. Patient is not ready for hospice at this time. -FAST score 6c at baseline, but unknown new baseline. patient was not able to work with PT/OT during hospitalization, but family is hoping he will be able to once his infection is treated a little longer. -PT/OT to evaluate. -Case management following: referral to [facility]. Family would consider [facility] as well if needed. -Please contact palliative care with any further needs. We will follow peripherally. (2) Bacteremia: (3) Acute UTI: (4) Dementia: Supervising Physician Co-Signing Physician Notes Patient seen and examined this afternoon-no family at bedside. Patient minimally responsive, confused when awake. PE: No acute distress Respirations: Unlabored CV: Regular rate, no edema Abdomen: Not distended, soft Neuro: Oriented to person only Agree with above note, assessment and plan as per NICOLLE Rangel. Will continue to follow and provide support and assist family with medical decision making. History of Present Illness Attending Physician: Jordy Carmona History of Present Illness This 88 year old male patient who has advanced dementia, presented to the hospital after a fall. He has a UTI and bacteremia-- staph. He is on IV abx. Palliative care is consulted to discuss goals of care and provide support to family. I met with the patient, his Philippe, and daughter Sury. At home, patient was still somewhat functional-- able to walk with assistance, was continent of bowel and bladder, but needed help with all ADLs. Patient's was providing all of his care at home, and the amount of care was increasing. Philippe states that patient does not talk much, voice is weak. He eats pureed foods and does pretty well. He has had no previous hospitalizations here and thus far has not had many complications of dementia. Thank you kindly for this consult. Palliative care team will follow peripherally. Allergies Allergy/AdvReac Type Severity Reaction Status Date / Time Penicillins Allergy Severe Anaphylaxis Verified 01/25/19 03:41 Home Medications Home Medications Medication Instructions Recorded Confirmed Type atorvastatin 20 mg PO DAILY 01/25/19 01/25/19 History cholecalciferol (vitamin D3) 2,000 unit PO DAILY 01/25/19 01/25/19 History [Vitamin D3] cyanocobalamin (vitamin B-12) 500 mcg PO DAILY 01/25/19 01/25/19 History [Vitamin B-12] finasteride 5 mg PO DAILY 01/25/19 01/25/19 History isosorbide mononitrate 30 mg PO DAILY 01/25/19 01/25/19 History latanoprost 1 drp OPHTHALMIC (EYE) HS 01/25/19 01/25/19 History metformin 500 mg PO BID 01/25/19 01/25/19 History metoprolol succinate 12.5 mg PO DAILY 01/25/19 01/25/19 History mirtazapine 15 mg PO HS 01/25/19 01/25/19 History omega [id number]-fish oil [Fish Oil] 1 cap PO BID 01/25/19 01/25/19 History phenytoin sodium extended 100 mg PO BID 01/25/19 01/25/19 History [Dilantin Extended] phenytoin sodium extended 30 mg PO BID 01/25/19 01/25/19 History [Dilantin] tamsulosin 0.4 mg PO DAILY 01/25/19 01/25/19 History warfarin [Coumadin] 4 mg PO DAILY 01/25/19 01/25/19 History Patient History Social History Preferred Language: Irish Communication Ability: Effective Primary Special Education Teacher Required: No Beliefs That Will Affect Care: None Current Living Situation: Spouse and Family Current Living Situation Comment: and Son Luis Downs Other Information That Helps Us Care for You: No Feels Safe at Home: Yes Safety Concerns: Feels Safe At This Time and Afraid for Self Smoking Status: Never smoker Hx Alcohol Use: No Hx Substance Use: No Review of Systems Review of Systems: Unobtainable due to cognitive status Patient denies pain, unable to obtain full ROS due to advanced dementia Physical Exam Constitutional: + frail appearing; no acute distress ENMT: external ear and nose normal, oropharynx normal Neck: normal visual inspection Respiratory: normal respiratory effort, lungs clear to auscultation Auscultation: + diminished lung sounds Cardiovascular: RRR, no murmur, no edema Gastrointestinal (Abdomen): Inspection/Auscultation: normal bowel sounds Percussion/Palpation: abdomen soft; abdomen nontender Neurologic: moves all extremities and awake Psychiatric: Orientation: oriented to person; + not oriented to place and + not oriented to time Results & Data Vital Signs (Past 12 Hours) Vital Signs Temp Pulse Pulse Resp BP BP Pulse Ox 01/29/19 11:29 93 H 18 169/93 H 96 01/29/19 08:00 92 H 01/29/19 07:26 36.6 C 89 18 171/85 H 95 01/29/19 04:55 99 H 01/29/19 02:32 37.2 C 88 18 166/86 H 95 01/29/19 00:16 37.1 C 93 H 19 174/95 H 91 Time Spent Midlevel 50 minutes with >50% of the time spent at bedside with patient and family di scussing condition and GOC.
[2019-01-29] MEDS ORDERED: VANCOMYCIN TROUGH ONE (13:30)
--- NOTE | 2019-01-29 14:29 | Pharmacy Report ---
Pharmacy Abx Dose Short Note - Date of Service January 29, 2019 - Assessment & Plan Microbiology 01/27/19 14:05 Blood Aerobic Blood Culture - Preliminary 01/27/19 14:05 Blood Anaerobic Blood Culture - Preliminary No growth in Aerobic bottle after 24 hours. No growth in Anaerobic bottle after 24 hours. 01/25/19 09:24 Blood Aerobic Blood Culture - Preliminary Coag negative Staphylococcus 01/25/19 09:24 Blood Anaerobic Blood Culture - Preliminary No growth in Anaerobic bottle after 48 hours. 01/25/19 09:16 Blood Aerobic Blood Culture - Preliminary Gram positive cocci 01/25/19 09:16 Blood Anaerobic Blood Culture - Preliminary No growth in Anaerobic bottle after 48 hours. 01/24/19 23:31 Urine,Clean Catch Urine Culture - Preliminary Gram positive cocci Coag negative Staphylococcus Assessment 88 year old M on day #3 of vancomycin IV for CoNS UTI, bacteremia. * Betancourt sensitive CoNS and a second gram positive cocci (ID pending) in urine Plan Vancomycin * Trough level = 14.2 mcg/mL * AUC/ALBER is the preferred PK/PD target for vancomycin.Trough level of 14.2 mcg/mL is expected to produce an AUC/ALBER at goal. * Continue dose of 750 mg (12 mg/kg) IV every 12 hours * Will repeat trough level in ~48 hours if therapy is continued Pharmacy will continue to follow and will adjust dose/frequency as necessary. Thank you.
--- NOTE | 2019-01-29 15:18 | Hospitalist Progress Note ---
Date of Service January 29, 2019 Assessment & Plan (1) Bacteremia: * Blood culture from 01/25 growing Gram(+) cocci in clusters. * Repeat blood cx from 01/27 pending, no growth currently * Continue Vancomycin as per discussion with pharmacy(was originally on ceftriaxone)--> Of note, our antibiogram for 2016 shows E. faecium only 58% sensitive to vanc, so antibiotic should be switched if E. faecium grows. * -Holding on TTE as UTD indicates endocarditis is fairly unlikely with Enteroccocus spc. If multiple cultures grow positive, or if it is a Staph spc, may need TTE. --> per discussion with family, patient would not want heroic measures taken -- will hold off on TTE for now * Continue to monitor (2) Acute UTI: * Improving -- patient with decreased dysuria * UA on 01/24 indicated infection with WBCs, leuk esterase. * Culture preliminary with gram + cocci and staph species * Continue vancomycin as above, as patient initially on ceftriaxone (3) Falls: * Four falls at home including a fairly hard fall onto driveway per . CT scans only showed a chronic left L3 transverse process fracture. * Pain control * PT/OT * Per discussion with , patient and daughter -- originally with wishes to return home with home health, although referrals being made to [facility] for additional rehab * Palliative Care consult -- discussion regarding goals of care tomorrow (4) Dementia: * Severe. Per his baseline is non-conversational. * CM for likely placement assistance * Palliative care consult -- will be evaluated tomorrow with family (5) CVA (cerebral vascular accident): * CVA in 2001. Dilantin level was 11.1 on 01/25 (lower end of normal). * Continue home Dilantin (6) Diabetes: * A1c 5.5 * Patient previously on metformin * SSI while inpatient -- BSGs acceptable, running 88-175 over the last 24 hours (7) Pulmonary emboli: * Prior history per family. * INR 3.5 on admission, coumadin held initially, restarted on 01/27 with INR 2.1 * INR 1.3 today * Will give additional 2mg dose with tonight 4mg dose * INR in AM (8) HTN (hypertension): * Lone low BP on 01/26, but rebounded spontaneously. * BPs continue to remain high, with tachycardia --> metoprolol was increased to 25mg this morning --> may need to titrate further * Currently elevated BP 165/98-- will give lisinopril 5mg x 1 now * Continue to monitor (9) HLD (hyperlipidemia): * Continue atorvastatin 20mg (10) History of [place] (myocardial infarction): * Continue statin * Not on ASA/Plavix, though given age & dementia, benefit is unclear. (11) History of DVT (deep vein thrombosis): * As above for PE. * INR was 1.3 today -- will give additional 2mg dose tonight with home 4mg and repeat INR in AM -- if patient remains subtherapeutic may consider SQ heparin until therapeutic DNR/DNI: Discussion with Dr. Sahni and daughter/ on 01/26 that the patient would not want extraordinary measures if his heart stopped or he stopped breathing. Further discussion last evening with the same. Dispo: referral for [place] placed--> possible bed, but will need final culture results to determine if patient will need IV Abx. If so, will need midline or US guided peripheral IV. Supervising Physician Co-Signing Physician Notes Attending Attestation: Chart reviewed in detail, care plan d/w PA Louise Dior. I agree w/ the parham components of her documentation. Pt with staph UTI and GPC bacteremia/septicemia. On IV vancomycin for such until ID/sensitivities are back on staph. Will need echo to r/o valvular vegetations. Agree w/ coumadin adjustments; continue daily INR. On dilantin for h/o seizure d/o; recent level wnl. Dispo planning. Presence of IV vanco, dilantin, and coumadin all constitute high-risk medications and higher risk of morbidity. Jordy Carmona MD Subjective Patient evaluated in bed this morning. No family present. Declines any pain at this time. Difficult to offer any ROS secondary to his dementia. Review of Systems Review of Systems: Unobtainable due to cognitive status Physical Exam Constitutional: + cachectic and + frail appearing; no acute distress Eyes: PERRL, conjunctivae normal, anicteric sclerae Neck: trachea midline, no thyromegaly Respiratory: normal respiratory effort, lungs clear to auscultation no respiratory distress Cardiovascular: Heart Sounds: normal S1 and normal S2; no murmur Gastrointestinal (Abdomen): normal bowel sounds, soft, nontender, no hepatosplenomegaly Musculoskeletal: no cyanosis or clubbing, extremities motor strength 5/5 Skin: no rashes, warm and dry Psychiatric: Orientation: alert; + not oriented to person, + not oriented to place and + not oriented to time Genitourinary: condom catheter present Lymphatic: no cervical or axillary lymphadenopathy Results & Data Vital Signs (Past 12 Hours) Vital Signs Temp Pulse Pulse Resp BP Pulse Ox 01/29/19 11:29 93 H 18 169/93 H 96 01/29/19 08:00 92 H 01/29/19 07:26 36.6 C 89 18 171/85 H 95 01/29/19 04:55 99 H Laboratory Results 01/29/19 01/29/19 01/29/19 Range/Units 13:22 11:36 08:25 WBC (4.8-10.8) K/uL RBC (4.7-6.1) M/uL Hgb (14.0-18.0) g/dL Hct (42-52) % MCV (80-100) fL MCH (25-34) pg MCHC (32-36) g/dL RDW Std Deviation (36.4-46.3) fL RDW Coeff of Patience (11.5-14.5) % Plt Count (130-400) K/uL MPV (7.4-10.4) fL PT 13.5 H (9.0-12.0) Seconds INR 1.3 H (0.9-1.1) Sodium (136-145) mmol/L Potassium (3.5-5.1) mmol/L Chloride (98-107) mmol/L Carbon Dioxide (21-32) mmol/L Anion Gap (3-11) BUN (7-18) mg/dl Creatinine (0.6-1.4) mg/dl Est Cr Clr Drug Dosing ml/min Est GFR ( Amer) Est GFR (Non-Af Amer) BUN/Creatinine Ratio (10-20) Glucose (70-99) mg/dl POC Glucose 92 (70-99) Calcium (8.5-10.1) mg/dl Vancomycin Trough 14.2 (See Comment) mcg/ml 01/29/19 01/29/19 01/29/19 Range/Units 07:38 07:19 07:19 WBC 6.84 (4.8-10.8) K/uL RBC 3.76 L (4.7-6.1) M/uL Hgb 12.1 L (14.0-18.0) g/dL Hct 35.1 L (42-52) % MCV 93.4 (80-100) fL MCH 32.2 (25-34) pg MCHC 34.5 (32-36) g/dL RDW Std Deviation 44.7 (36.4-46.3) fL RDW Coeff of Patience 13.1 (11.5-14.5) % Plt Count 228 (130-400) K/uL MPV 10.0 (7.4-10.4) fL PT (9.0-12.0) Seconds INR (0.9-1.1) Sodium 136 (136-145) mmol/L Potassium 3.7 (3.5-5.1) mmol/L Chloride 105 (98-107) mmol/L Carbon Dioxide 25 (21-32) mmol/L Anion Gap 6.0 (3-11) BUN 15 (7-18) mg/dl Creatinine 0.75 (0.6-1.4) mg/dl Est Cr Clr Drug Dosing 62.5 ml/min Est GFR ( Amer) 95.6 Est GFR (Non-Af Amer) 82.5 BUN/Creatinine Ratio 19.9 (10-20) Glucose 109 H (70-99) mg/dl POC Glucose 112 H (70-99) Calcium 9.0 (8.5-10.1) mg/dl Vancomycin Trough (See Comment) mcg/ml 01/28/19 01/28/19 Range/Units 20:01 16:49 WBC (4.8-10.8) K/uL RBC (4.7-6.1) M/uL Hgb (14.0-18.0) g/dL Hct (42-52) % MCV (80-100) fL MCH (25-34) pg MCHC (32-36) g/dL RDW Std Deviation (36.4-46.3) fL RDW Coeff of Patience (11.5-14.5) % Plt Count (130-400) K/uL MPV (7.4-10.4) fL PT (9.0-12.0) Seconds INR (0.9-1.1) Sodium (136-145) mmol/L Potassium (3.5-5.1) mmol/L Chloride (98-107) mmol/L Carbon Dioxide (21-32) mmol/L Anion Gap (3-11) BUN (7-18) mg/dl Creatinine (0.6-1.4) mg/dl Est Cr Clr Drug Dosing ml/min Est GFR ( Amer) Est GFR (Non-Af Amer) BUN/Creatinine Ratio (10-20) Glucose (70-99) mg/dl POC Glucose 140 H 88 (70-99) Calcium (8.5-10.1) mg/dl Vancomycin Trough (See Comment) mcg/ml PG Care Time/CCT Total # of Minutes Spent Total Time Spent with Patient: Total time spent is greater than 50% in coordination of care (as documented) at patient's floor/unit and/or counseling patient:
[2019-01-29] MEDS ORDERED: lisinopriL 5 MG TAB PO ONE (15:40)
[2019-01-29] MEDS ORDERED: WARFARIN SOD 2 MG TAB PO ONE (16:00)
[2019-01-29] MEDS: WARFARIN SOD 4 MG TAB PO SCH (16:24)
[2019-01-29] MEDS: LATANOPROST 0.005% OP SOLN 2.5 ML BTL OP SCH (20:53)
[2019-01-29] MEDS: MIRTAZAPINE TAB 15 MG TAB PO SCH (20:53)
[2019-01-30] MEDS: VANCOMYCIN HCL 750 MG in SODIUM CHLORIDE 0.9% 250 ML IV SCH ×2 (02:04→14:01)
[2019-01-30 07:53] LABS: INR 1.7 (0.9-1.1); Prothrombin Time 16.8 Seconds (9.0-12.0)
[2019-01-30 08:03] LABS: Hematocrit (blood only) 35.3 % (42-52); Hemoglobin 12.2 g/dL (14.0-18.0); Mean Corpuscular Hemoglobin 31.5 pg (25-34); Mean Corpuscular Hgb Conc 34.6 g/dL (32-36); Mean Corpuscular Volume 91.2 fL (80-100); Mean Platelet Volume 10.4 fL (7.4-10.4); Platelet Count 240 K/uL (130-400); RDW Coefficient of Variation 13.1 % (11.5-14.5); RDW Standard Deviation 43.6 fL (36.4-46.3); Red Blood Count 3.87 M/uL (4.7-6.1); White Blood Count 6.43 K/uL (4.8-10.8)
[2019-01-30 08:13] LABS: BUN Creatinine Ratio 21.9 (10-20); Calcium 9.4 mg/dl (8.5-10.1); Creatinine Clr Calc Pharmacy 69.1 ml/min; Est GFR (African American) 98.9; Est GFR (Non-African American) 85.4; Potassium 3.4 mmol/L (3.5-5.1)
[2019-01-30] MEDS: CHOLECALCIFEROL 1,000 UNITS TAB PO SCH (08:16)
[2019-01-30] MEDS: ATORVASTATIN 20 MG TAB PO SCH (08:16)
[2019-01-30] MEDS: FINASTERIDE 5 MG TAB PO SCH (08:17)
[2019-01-30] MEDS: PHENYTOIN SODIUM ER 100 MG CAP PO SCH ×2 (08:17→20:15)
[2019-01-30] MEDS: CYANOCOBALAMIN 500 MCG TABLET (VITAMIN B-12) PO SCH (08:17)
[2019-01-30] MEDS: ISOSORBIDE MONO EXTENDED REL 30 MG TABCR PO SCH (08:18)
[2019-01-30] MEDS: PHENYTOIN SODIUM ER 30 MG CAP PO SCH ×2 (08:18→20:16)
[2019-01-30] MEDS: METOPROLOL SUCC 25MG EXT REL TAB PO SCH (08:18)
[2019-01-30] MEDS: OMEGA-3 (PURIFIED FISH OIL) 1 GM CAP PO SCH ×2 (08:19→20:18)
[2019-01-30] MEDS: TAMSULOSIN HCL 0.4 MG CAP PO SCH (08:19)
[2019-01-30] MEDS: INSULIN ASPART 100 UNITS/ML 3 ML PEN SC SCH ×4 (08:21→20:16)
[2019-01-30] MEDS: POTASSIUM CHLORIDE PWD 20 MEQ PACK PO SCH ×2 (10:09→20:15)
[2019-01-30] MEDS: WARFARIN SOD 4 MG TAB PO SCH (16:01)
[2019-01-30] MEDS: POLYETHYLENE (MIRALAX) 17 GM PACK PO SCH (16:37)
[2019-01-30] MEDS: ACETAMINOPHEN 325 MG TAB PO PRN ×2 (16:38→23:39)
--- NOTE | 2019-01-30 16:58 | Hospitalist Progress Note ---
Date of Service January 30, 2019 Assessment & Plan (1) Bacteremia: * Blood culture from 01/25 growing coag neg staph * Repeat blood cx from 01/27 pending, no growth currently * Continue Vancomycin as per discussion with pharmacy(was originally on ceftriaxone)--> Of note, our antibiogram for 2017 shows E. faecium only 58% sensitive to vanc, so antibiotic should be switched if E. faecium grows. * Ordered ECHO following conversation with micro/pharmacy --> isolate slow growing and will likely be finalized tomorrow --> suspect alpha strep, not enterococcus species --> no evidence of valvular vegetations although quality did not allow for definitive exclusion of valvular lesion * Continue to monitor (2) Acute UTI: * Improving * UA on 01/24 indicated infection with WBCs, leuk esterase. 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 CT scans only showed a chronic left L3 transverse process fracture. * Pain control * PT/OT * Palliative Care consult -- patient to be discharge to [facility] at discharge with eventual plans to transition to hospice (4) Dementia: * Severe. Per his baseline is non-conversational. Placement at discharrge * Palliative care consult -- POLST form was filled out this evening (5) CVA (cerebral vascular accident): * CVA in 2001. Dilantin level was 11.1 on 01/25 (lower end of normal). * Continue home Dilantin (6) Diabetes: * A1c 5.5 * Patient previously on metformin * SSI while inpatient -- BSGs acceptable, running 100s-140s over the last 24 hours (7) HTN (hypertension): * STABLE * Lone low BP on 01/26, but rebounded spontaneously. * BPs continue to remain high, with tachycardia --> metoprolol was increased to 25mg this morning --> may need to titrate further * Consistently elevated BP over the last several days, with 165/98 last evening --> given 1x dose lisinopril 5mg with BP currently stable, 116/75 * Continue to monitor (8) HLD (hyperlipidemia): * Continue atorvastatin 20mg (9) History of [place] (myocardial infarction): * Continue statin * Not on ASA/Plavix, though given age & dementia, benefit is unclear. (10) History of DVT (deep vein thrombosis): * As above for PE. * INR was 1.7 today -- as above : Discussion with Dr. Sahni and daughter/ on 01/26 that the patient would not want extraordinary measures if his heart stopped or he stopped breathing. Further discussion last evening with the same. Dispo: DNR/DNI. POLST form completed this evening. Patient to possibly be discharged to [facility] with plans to transition to hospice in the next couple weeks. Final culture results and waiting to hear back from ID to determine course of abx on discharge to determine need for midline vs US guided peripheral. Supervising Physician Co-Signing Physician Notes Attending Attestation: Chart reviewed in detail, care plan d/w JOSEPH Dior. I agree w/ the parham components of her documentation. Pt with alpha strep UTI and coag neg staph bacteremia/septicemia. Source for bacteremia uncertain - skin? Repeat blood cx's to date negative ensuring sterility. Echo w/o obvious valve lesions. On IV vancomycin for UTI and bacteremia. At d/c will need 14-day course of IV abx - rocephin? Agree w/ coumadin adjustments; continue daily INR. On dilantin for h/o seizure (due to prior right-sided MCA territory stroke?). Recent dilantin level wnl. Dispo planning. As previously mentioned IV vanco, dilantin, and coumadin all constitute high- risk medications and higher risk of morbidity. Jordy Carmona MD Subjective Patient evaluated. Alone in room, no family present. Patient sleeping but able to open eyes and provide minimal answers to questions. Does admit to some continued back pain, but denies pain elsewhere. No other complaints noted due to advanced dementia. Patient had been more verbal on Monday when family present. Patient without distention or abdominal pain, but will add miralax due to no BM since 01/25 after discussion with nursing. Review of Systems Review of Systems: Unobtainable due to cognitive status Musculoskeletal: + back pain (upper back pain) Physical Exam Constitutional: + ill appearing, + cachectic and + lethargic; no acute distress Neck: trachea midline, no thyromegaly Respiratory: normal respiratory effort; no respiratory distress, no labored breathing and does not use accessory muscles Auscultation: + diminished lung sounds; no wheezes Cardiovascular RRR, no murmur, no edema Gastrointestinal (Abdomen) normal bowel sounds, soft, nontender, no hepatosplenomegaly Skin no rashes, warm and dry Genitourinary indwelling jordan Cardiovascular: RRR, no murmur, no edema Gastrointestinal (Abdomen): normal bowel sounds, soft, nontender, no hepatosplenomegaly Skin: no rashes, warm and dry Neurologic: deep tendon reflexes 2+ bilaterally Genitourinary: catheter present Results & Data Vital Signs (Past 12 Hours) Vital Signs Temp Pulse Pulse Resp BP Pulse Ox 01/30/19 15:42 36.5 C 101 H 17 116/75 95 01/30/19 11:17 36.4 C L 99 H 16 110/70 94 01/30/19 07:03 36.6 C 91 H 86 18 152/90 H 96 Laboratory Results 01/30/19 01/30/19 01/30/19 Range/Units 16:35 11:58 07:35 WBC (4.8-10.8) K/uL RBC (4.7-6.1) M/uL Hgb (14.0-18.0) g/dL Hct (42-52) % MCV (80-100) fL MCH (25-34) pg MCHC (32-36) g/dL RDW Std Deviation (36.4-46.3) fL RDW Coeff of Patience (11.5-14.5) % Plt Count (130-400) K/uL MPV (7.4-10.4) fL PT (9.0-12.0) Seconds INR (0.9-1.1) Sodium (136-145) mmol/L Potassium (3.5-5.1) mmol/L Chloride (98-107) mmol/L Carbon Dioxide (21-32) mmol/L Anion Gap (3-11) BUN (7-18) mg/dl Creatinine (0.6-1.4) mg/dl Est Cr Clr Drug Dosing ml/min Est GFR ( Amer) Est GFR (Non-Af Amer) BUN/Creatinine Ratio (10-20) Glucose (70-99) mg/dl POC Glucose 126 H 143 H 103 H (70-99) Calcium (8.5-10.1) mg/dl 01/30/19 01/30/19 01/30/19 Range/Units 07:24 07:24 07:24 WBC 6.43 (4.8-10.8) K/uL RBC 3.87 L (4.7-6.1) M/uL Hgb 12.2 L (14.0-18.0) g/dL Hct 35.3 L (42-52) % MCV 91.2 (80-100) fL MCH 31.5 (25-34) pg MCHC 34.6 (32-36) g/dL RDW Std Deviation 43.6 (36.4-46.3) fL RDW Coeff of Patience 13.1 (11.5-14.5) % Plt Count 240 (130-400) K/uL MPV 10.4 (7.4-10.4) fL PT 16.8 H (9.0-12.0) Seconds INR 1.7 H (0.9-1.1) Sodium 137 (136-145) mmol/L Potassium 3.4 L (3.5-5.1) mmol/L Chloride 105 (98-107) mmol/L Carbon Dioxide 25 (21-32) mmol/L Anion Gap 7.0 (3-11) BUN 15 (7-18) mg/dl Creatinine 0.69 (0.6-1.4) mg/dl Est Cr Clr Drug Dosing 69.1 ml/min Est GFR ( Amer) 98.9 Est GFR (Non-Af Amer) 85.4 BUN/Creatinine Ratio 21.9 H (10-20) Glucose 104 H (70-99) mg/dl POC Glucose (70-99) Calcium 9.4 (8.5-10.1) mg/dl 01/29/19 01/29/19 Range/Units 20:24 16:19 WBC (4.8-10.8) K/uL RBC (4.7-6.1) M/uL Hgb (14.0-18.0) g/dL Hct (42-52) % MCV (80-100) fL MCH (25-34) pg MCHC (32-36) g/dL RDW Std Deviation (36.4-46.3) fL RDW Coeff of Patience (11.5-14.5) % Plt Count (130-400) K/uL MPV (7.4-10.4) fL PT (9.0-12.0) Seconds INR (0.9-1.1) Sodium (136-145) mmol/L Potassium (3.5-5.1) mmol/L Chloride (98-107) mmol/L Carbon Dioxide (21-32) mmol/L Anion Gap (3-11) BUN (7-18) mg/dl Creatinine (0.6-1.4) mg/dl Est Cr Clr Drug Dosing ml/min Est GFR ( Amer) Est GFR (Non-Af Amer) BUN/Creatinine Ratio (10-20) Glucose (70-99) mg/dl POC Glucose 161 H 143 H (70-99) Calcium (8.5-10.1) mg/dl Diagnostic Findings ECHO 01/30 Interpretation Summary: The study was technically difficult. There were technical limitations due to patient's poor positioning. Left ventricular systolic function is low normal There are regional wall motion abnormalities as specified. Aortic valve sclerosis mild, without significant aortic valvular stenosis Right ventricular systolic pressure is normal No evidence of valvular vegetations although the image quality does not allo for definitive exclusion of a valvular lesion. PG Care Time/CCT Total # of Minutes Spent Total Time Spent with Patient: Total time spent is greater than 50% in coordination of care (as documented) at patient's floor/unit and/or counseling patient:
--- NOTE | 2019-01-30 17:26 | Palliative Care Progress Note ---
Date of Service January 30, 2019 Assessment & Plan (1) Goals of care, counseling/discussion: -Talked with Hospitalist regarding discharge planning. POLST recommended prior to discharge. -I met with the patient who was sitting in his bed. he looked at me when I said his name, but did not follow commands. -Patients , Philippe and son Luis were at the bedside. -Patient ate about 25% of his breakfast, sips at lunch and ate a bite or two for me at dinner time while I was in the room. -We discussed and completed a POLST form at the bedside, with all questions answered, including a lot of questions regarding tube feeding if he would decline and continue to have poor PO intake, which is expected with end stage dementia. -A POLST form was completed indicating DNR/DNI, limited intervention (She said she thinks he likely will not do well with rehab, but also would bring him back to the hospital if she is not comfortable with the care at the SNF), -We talked about what to expect in the future with dementia: continued decline in mental and functional status, poor PO intake, UTIs, pneumonias, incontinence, etc. Patient's and son both verbalize understanding. -Patient WBC is 6.67, still pending blood cultures to determine source and treatment. -Family is in agreement that patient will need SNF placement after hospital. Skilled initially with likely transition to long-term care. We talked about the option of hospice in the future. Patient is not ready for hospice at this time. -FAST score 6c at baseline, but unknown new baseline, I would say that the patient is at 7c now with this hospitalization. -PT/OT evaluated. PT stated patient was too lethargic for therapy and OT stated his endurance was poor, but SNF was recommended. -Case management following: referral to [facility] in place for skilled services. -Unlikely patient will do well with rehab, discussed transition to hospice once there. patient understanding and believes this is the route they will take if he fails at skilled services. -No symptom management needs at this time. -Please contact palliative care with any further needs. We will follow peripherally if he would decline during this hospitalization. -PPS: 20% (2) Bacteremia: (3) Acute UTI: (4) Dementia: Subjective Pt sitting in his bed in no apparent distress Opened his eyes for me, but did not speak to me. Unable to complete ROS due to advanced dementia Patients Philippe and son Rocky at the bedside See A/P for further details. Review of Systems Review of Systems: Patient denies pain, unable to obtain full ROS due to advanced dementia Physical Exam Constitutional: + ill appearing, + cachectic, + frail appearing and + lethargic Respiratory: normal respiratory effort, lungs clear to auscultation Auscultation: + diminished lung sounds Cardiovascular: RRR, no murmur, no edema Gastrointestinal (Abdomen): normal bowel sounds, soft, nontender, no hepatosplenomegaly Skin: no rashes, warm and dry Genitourinary: indwelling jordan Results & Data Vital Signs (Past 12 Hours) Vital Signs Temp Pulse Pulse Resp BP Pulse Ox 01/30/19 17:20 97 H 01/30/19 15:42 36.5 C 101 H 17 116/75 95 01/30/19 11:17 36.4 C L 99 H 16 110/70 94 01/30/19 07:03 36.6 C 91 H 86 18 152/90 H 96 PG Care Time/CCT Total # of Minutes Spent Total Time Spent with Patient: Total time spent is greater than 50% in coordination of care (as documented) at patient's floor/unit and/or counseling patient: 35 Time Spent Midlevel Total time spent 35 minutes with > 50% of that time assessing the patient, discussing goals of care and completing a POLST form with the patients at the bedside.
[2019-01-30] MEDS: LIDOCAINE 5% 1 PATCH TD SCH (20:14)
[2019-01-30] MEDS: MIRTAZAPINE TAB 15 MG TAB PO SCH (20:18)
[2019-01-30] MEDS: LATANOPROST 0.005% OP SOLN 2.5 ML BTL OP SCH (20:19)
[2019-01-31] MEDS: VANCOMYCIN HCL 750 MG in SODIUM CHLORIDE 0.9% 250 ML IV SCH ×2 (01:40→14:15)
[2019-01-31 08:22] LABS: Hematocrit (blood only) 36.7 % (42-52); Hemoglobin 12.4 g/dL (14.0-18.0); Mean Corpuscular Hemoglobin 31.6 pg (25-34); Mean Corpuscular Hgb Conc 33.8 g/dL (32-36); Mean Corpuscular Volume 93.4 fL (80-100); Mean Platelet Volume 9.7 fL (7.4-10.4); Platelet Count 265 K/uL (130-400); RDW Coefficient of Variation 12.9 % (11.5-14.5); RDW Standard Deviation 44.5 fL (36.4-46.3); Red Blood Count 3.93 M/uL (4.7-6.1); White Blood Count 7.89 K/uL (4.8-10.8)
[2019-01-31] MEDS: POTASSIUM CHLORIDE PWD 20 MEQ PACK PO SCH ×2 (08:32→20:11)
[2019-01-31] MEDS: PHENYTOIN SODIUM ER 100 MG CAP PO SCH ×2 (08:32→20:10)
[2019-01-31] MEDS: CYANOCOBALAMIN 500 MCG TABLET (VITAMIN B-12) PO SCH (08:32)
[2019-01-31] MEDS: METOPROLOL SUCC 25MG EXT REL TAB PO SCH (08:32)
[2019-01-31] MEDS: ISOSORBIDE MONO EXTENDED REL 30 MG TABCR PO SCH (08:33)
[2019-01-31] MEDS: ATORVASTATIN 20 MG TAB PO SCH (08:33)
[2019-01-31] MEDS: CHOLECALCIFEROL 1,000 UNITS TAB PO SCH (08:33)
[2019-01-31] MEDS: TAMSULOSIN HCL 0.4 MG CAP PO SCH (08:33)
[2019-01-31] MEDS: FINASTERIDE 5 MG TAB PO SCH (08:33)
[2019-01-31 08:34] LABS: INR 1.7 (0.9-1.1)
[2019-01-31] MEDS: PHENYTOIN SODIUM ER 30 MG CAP PO SCH ×2 (08:34→20:11)
[2019-01-31] MEDS: OMEGA-3 (PURIFIED FISH OIL) 1 GM CAP PO SCH ×2 (08:34→20:13)
[2019-01-31] MEDS: POLYETHYLENE (MIRALAX) 17 GM PACK PO SCH (08:34)
[2019-01-31] MEDS: INSULIN ASPART 100 UNITS/ML 3 ML PEN SC SCH ×4 (08:37→20:15)
[2019-01-31 08:51] LABS: BUN Creatinine Ratio 23.1 (10-20); Calcium 9.5 mg/dl (8.5-10.1); Creatinine Clr Calc Pharmacy 63.1 ml/min; Est GFR (African American) 94.6; Est GFR (Non-African American) 81.6; Potassium 3.6 mmol/L (3.5-5.1)
[2019-01-31 10:26] LABS: Alanine Aminotransferase 43 U/L (12-78); Albumin Level 2.2 gm/dl (3.4-5.0); Alkaline Phosphatase 80 U/L (45-117); Aspartate Aminotransferase 83 U/L (15-37); Bilirubin Direct < 0.1 mg/dl (0-0.2); Bilirubin,Total 0.4 mg/dl (0.2-1)
[2019-01-31] MEDS ORDERED: VANCOMYCIN TROUGH ONE (13:30)
--- NOTE | 2019-01-31 13:49 | Hospitalist Progress Note ---
Date of Service January 31, 2019 Assessment & Plan (1) Bacteremia: * Likely from source, as urine culture also with coag neg staph * Blood culture from 01/25 growing coag neg staph * Repeat blood cx from 01/27 without growth currently * Continue Vancomycin as per discussion with pharmacy(was originally on ceftriaxone)--> Of note, our antibiogram for 2017 shows E. faecium only 58% sensitive to vanc, so antibiotic should be switched if E. faecium grows. * Ordered ECHO following conversation with micro/pharmacy --> isolate slow growing and will likely be finalized tomorrow --> suspect alpha strep, not enterococcus species --> no evidence of valvular vegetations although quality did not allow for definitive exclusion of valvular lesion * Infectious Disease Consult for terminal carman abx -- appreciate input --> will transition to Rocephin 2g IV daily for total of 14 days from last negative bl ood culture --- to be completed on 02/10 * Ordered US guided peripheral IV for anticipated d/c to [facility] tomorrow * Of note, patient with PCN allergy for anaphylaxis -- patient had received Rocephin x 2 in ER on admission without reaction * Continue to monitor (2) Acute UTI: * Improving * UA on 01/24 indicated infection with WBCs, leuk esterase. * Culture with alpha strep not enteroccocus, coag negative staph * Switched to Rocpephin as above (3) Falls: * Four falls at home including a fairly hard fall onto driveway per . CT scans only showed a chronic left L3 transverse process fracture. * Pain control * PT/OT * Palliative Care consult -- patient to be discharge to [facility] at discharge with eventual plans to transition to hospice if patient declines * POLST form was filled out last night by NICOLLE Nava -- appreciate assistance (4) Dementia: * Severe. Per his baseline is non-conversational. Placement at discharge * Palliative care consult -- appreciate input (5) CVA (cerebral vascular accident): * CVA in 2001. Dilantin level was 11.1 on 01/25 (lower end of normal). * Continue home Dilantin (6) Diabetes: * A1c 5.5 * Patient previously on metformin * SSI while inpatient -- BSGs acceptable, running 91-181 over the last 24 hours (7) Pulmonary emboli: * Prior history per family. * INR 3.5 on admission, coumadin held initially, restarted on 01/27 with INR 2.1 * INR again 1.7 today -- given additional 2mg dose on 01/29 along with 4mg home dose-- will likely be reflective on INR in AM * Continue to monitor (8) HTN (hypertension): * STABLE. BP currently 131/77, HR 98 (although it has been running 80s- 90s) * Lone low BP on 01/26, but rebounded spontaneously. * BPs continue to remain high, with tachycardia --> metoprolol was increased to 25mg yesterday * Consistently elevated BP over the last several days, so patient was given 1x dose lisinopril 5mg * Continue to monitor (9) HLD (hyperlipidemia): * Continue atorvastatin 20mg (10) History of WI (myocardial infarction): * Continue statin * Not on ASA/Plavix, though given age & dementia, benefit is unclear. (11) History of DVT (deep vein thrombosis): * As above for PE. * INR was 1.7 today -- as above DNR/DNI. POLST form completed 01/30 by palliative care team Dispo: Patient to possibly be discharged to [facility] tomorrow with possible transition to hospice terminal [facility] if patient to continue to decline. US guided peripheral ordered Supervising Physician Co-Signing Physician Notes Attending Attestation: Chart reviewed in detail, care plan d/w JOSEPH Dior. I agree w/ the parham components of her documentation. Pt with alpha strep/coag negative staph UTI and coag neg staph bacteremia/septicemia. Source for bacteremia likely the urine (urine indeed had 2 pathogens). Repeat blood cx's to date negative ensuring sterility. Echo w/o obvious valve lesions. On IV vancomycin for UTI and bacteremia - changing to 2 gm rocephin daily IV as per ID recs. At d/c will need 14-day course of IV rocephin. Agree with coumadin managemet per Ms Dior; continue daily INR. On dilantin for h/o seizure (due to prior right-sided MCA territory stroke?). Recent dilantin level wnl. As previously mentioned IV vanco, dilantin, and coumadin all constitute high- risk medications and higher risk of morbidity. Likely d/c to SNF tomorrow. Jordy Carmona MD Subjective Patient sitting in bed. No acute distress. Patient was alone during examination, no family present. Denies abdominal pain or dysuria. No complaints, although difficult to obtain ROS given advanced dementia. Review of Systems Review of Systems: Unobtainable due to cognitive status Physical Exam Physical Exam: Constitutional + ill appearing, + cachectic; no acute distress Neck trachea midline, no thyromegaly Respiratory normal respiratory effort; no respiratory distress, no labored breathing and does not use accessory muscles Auscultation: + diminished lung sounds; no wheezes Cardiovascular RRR, no murmur, no edema Gastrointestinal (Abdomen) normal bowel sounds, soft, nontender, no hepatosplenomegaly Skin no rashes, warm and dry Genitourinary condom catheter present Cardiovascular RRR, no murmur Gastrointestinal (Abdomen) normal bowel sounds, soft, nontender, no hepatosplenomegaly Skin no rashes, warm and dry Neurologic deep tendon reflexes 2+ bilaterally Genitourinary catheter present Results & Data Vital Signs (Past 12 Hours) Vital Signs Temp Pulse Pulse Resp BP Pulse Ox 01/31/19 12:05 36.6 C 98 H 16 131/77 94 01/31/19 07:29 87 01/31/19 07:28 36.8 C 91 H 16 160/86 H 94 01/31/19 03:00 36.5 C 85 20 154/80 H 97 Laboratory Results 01/31/19 01/31/19 01/31/19 Range/Units 16:42 13:26 11:52 WBC (4.8-10.8) K/uL RBC (4.7-6.1) M/uL Hgb (14.0-18.0) g/dL Hct (42-52) % MCV (80-100) fL MCH (25-34) pg MCHC (32-36) g/dL RDW Std Deviation (36.4-46.3) fL RDW Coeff of Patience (11.5-14.5) % Plt Count (130-400) K/uL MPV (7.4-10.4) fL PT (9.0-12.0) Seconds INR (0.9-1.1) Sodium (136-145) mmol/L Potassium (3.5-5.1) mmol/L Chloride (98-107) mmol/L Carbon Dioxide (21-32) mmol/L Anion Gap (3-11) BUN (7-18) mg/dl Creatinine (0.6-1.4) mg/dl Est Cr Clr Drug Dosing ml/min Est GFR ( Amer) Est GFR (Non-Af Amer) BUN/Creatinine Ratio (10-20) Glucose (70-99) mg/dl POC Glucose 93 110 H (70-99) Calcium (8.5-10.1) mg/dl Total Bilirubin (0.2-1) mg/dl Direct Bilirubin (0-0.2) mg/dl AST (15-37) U/L ALT (12-78) U/L Alkaline Phosphatase (45-117) U/L Total Protein (6.4-8.2) gm/dl Albumin (3.4-5.0) gm/dl Vancomycin Trough 18.9 (See Comment) mcg/ml 01/31/19 01/31/19 01/31/19 Range/Units 08:05 08:05 08:05 WBC 7.89 (4.8-10.8) K/uL RBC 3.93 L (4.7-6.1) M/uL Hgb 12.4 L (14.0-18.0) g/dL Hct 36.7 L (42-52) % MCV 93.4 (80-100) fL MCH 31.6 (25-34) pg MCHC 33.8 (32-36) g/dL RDW Std Deviation 44.5 (36.4-46.3) fL RDW Coeff of Patience 12.9 (11.5-14.5) % Plt Count 265 (130-400) K/uL MPV 9.7 (7.4-10.4) fL PT 17.0 H (9.0-12.0) Seconds INR 1.7 H (0.9-1.1) Sodium (136-145) mmol/L Potassium (3.5-5.1) mmol/L Chloride (98-107) mmol/L Carbon Dioxide (21-32) mmol/L Anion Gap (3-11) BUN (7-18) mg/dl Creatinine (0.6-1.4) mg/dl Est Cr Clr Drug Dosing ml/min Est GFR ( Amer) Est GFR (Non-Af Amer) BUN/Creatinine Ratio (10-20) Glucose (70-99) mg/dl POC Glucose (70-99) Calcium (8.5-10.1) mg/dl Total Bilirubin 0.4 (0.2-1) mg/dl Direct Bilirubin < 0.1 (0-0.2) mg/dl AST 83 H (15-37) U/L ALT 43 (12-78) U/L Alkaline Phosphatase 80 (45-117) U/L Total Protein 7.0 (6.4-8.2) gm/dl Albumin 2.2 L (3.4-5.0) gm/dl Vancomycin Trough (See Comment) mcg/ml 01/31/19 01/31/19 01/30/19 Range/Units 08:05 07:39 19:58 WBC (4.8-10.8) K/uL RBC (4.7-6.1) M/uL Hgb (14.0-18.0) g/dL Hct (42-52) % MCV (80-100) fL MCH (25-34) pg MCHC (32-36) g/dL RDW Std Deviation (36.4-46.3) fL RDW Coeff of Patience (11.5-14.5) % Plt Count (130-400) K/uL MPV (7.4-10.4) fL PT (9.0-12.0) Seconds INR (0.9-1.1) Sodium 135 L (136-145) mmol/L Potassium 3.6 (3.5-5.1) mmol/L Chloride 104 (98-107) mmol/L Carbon Dioxide 27 (21-32) mmol/L Anion Gap 5.0 (3-11) BUN 18 (7-18) mg/dl Creatinine 0.77 (0.6-1.4) mg/dl Est Cr Clr Drug Dosing 63.1 ml/min Est GFR ( Amer) 94.6 Est GFR (Non-Af Amer) 81.6 BUN/Creatinine Ratio 23.1 H (10-20) Glucose 99 (70-99) mg/dl POC Glucose 91 181 H (70-99) Calcium 9.5 (8.5-10.1) mg/dl Total Bilirubin (0.2-1) mg/dl Direct Bilirubin (0-0.2) mg/dl AST (15-37) U/L ALT (12-78) U/L Alkaline Phosphatase (45-117) U/L Total Protein (6.4-8.2) gm/dl Albumin (3.4-5.0) gm/dl Vancomycin Trough (See Comment) mcg/ml PG Care Time/CCT Total # of Minutes Spent Total Time Spent with Patient: Total time spent is greater than 50% in coordination of care (as documented) at patient's floor/unit and/or counseling patient:
--- NOTE | 2019-01-31 14:00 | Infectious Disease Consult ---
Date of Consultation January 31, 2019 Assessment & Plan (1) Gram positive sepsis: can change to Rocephin 2 g IV daily, would give 14 days total from first negative blood cultures, 01/27 remain negative. Ok for picc if needed. (2) Acute UTI: History of Present Illness Attending Physician: Jordy Carmona pt admitted after a fall at home on 01/24. CT head, spine in ER negative, ct chest/abd/pelvis negative as well. In ER blood and urine cultures obtained, growing toro sensitive MECHANICAL DESIGNER, on vanco, tolerating well. repeat cultures from 01/27 are negative x 2. Echo negative for veg. has been on vanco and tolerating well. wbc 7.8, creat 0.7. had low grade fevers upon admission, tmax 37.6, now afebrile. UA in ER >30 wbc and +4 bacteria. ID asked to eval due to septicemia. On my exam pt is awake, alert, denies abd pain, no n/v/d, no f/c. eating well. Allergies Allergy/AdvReac Type Severity Reaction Status Date / Time Penicillins Allergy Severe Anaphylaxis Verified 01/25/19 03:41 Home Medications Home Medications Medication Instructions Recorded Confirmed Type atorvastatin 20 mg PO DAILY 01/25/19 01/25/19 History cholecalciferol (vitamin D3) 2,000 unit PO DAILY 01/25/19 01/25/19 History [Vitamin D3] cyanocobalamin (vitamin B-12) 500 mcg PO DAILY 01/25/19 01/25/19 History [Vitamin B-12] finasteride 5 mg PO DAILY 01/25/19 01/25/19 History isosorbide mononitrate 30 mg PO DAILY 01/25/19 01/25/19 History latanoprost 1 drp OPHTHALMIC (EYE) HS 01/25/19 01/25/19 History metformin 500 mg PO BID 01/25/19 01/25/19 History metoprolol succinate 12.5 mg PO DAILY 01/25/19 01/25/19 History mirtazapine 15 mg PO HS 01/25/19 01/25/19 History omega [id number] oil [Fish Oil] 1 cap PO BID 01/25/19 01/25/19 History phenytoin sodium extended 100 mg PO BID 01/25/19 01/25/19 History [Dilantin Extended] phenytoin sodium extended 30 mg PO BID 01/25/19 01/25/19 History [Dilantin] tamsulosin 0.4 mg PO DAILY 01/25/19 01/25/19 History warfarin [Coumadin] 4 mg PO DAILY 01/25/19 01/25/19 History Patient History Social History Preferred Language: Moldovan Communication Ability: Effective Die Tester Required: No Beliefs That Will Affect Care: None Current Living Situation: Spouse and Family Current Living Situation Comment: and Son Luis Downs Other Information That Helps Us Care for You: No Feels Safe at Home: Yes Safety Concerns: Feels Safe At This Time and Afraid for Self Smoking Status: Never smoker Hx Alcohol Use: No Hx Substance Use: No Review of Systems Review of Systems: All systems reviewed & are unremarkable except as noted in HPI & below Physical Exam Constitutional: WD/WN, vitals as above + cachectic Eyes: PERRL, conjunctivae normal, anicteric sclerae ENMT: external ear and nose normal, oropharynx normal Neck: normal visual inspection Respiratory: normal respiratory effort, lungs clear to auscultation Cardiovascular: RRR, no murmur, no edema Gastrointestinal (Abdomen): normal bowel sounds, soft, nontender, no hepatosplenomegaly Musculoskeletal: Head/Neck/Chest: + head abnormal to inspection, normocephalic and head atraumatic Skin: no rashes, warm and dry Psychiatric: A+Ox3, euthymic affect Results & Data Vital Signs (Past 12 Hours) Vital Signs Temp Pulse Pulse Resp BP Pulse Ox 01/31/19 12:05 36.6 C 98 H 16 131/77 94 01/31/19 07:29 87 01/31/19 07:28 36.8 C 91 H 16 160/86 H 94 01/31/19 03:00 36.5 C 85 20 154/80 H 97 Laboratory Results Microbiology 01/24/19 23:31 Urine,Clean Catch Urine Culture - Preliminary Alpha strep. not enterococcus Coag negative Staphylococcus 01/25/19 09:24 Blood Aerobic Blood Culture - Final Coag neg staph not lugdunensis 01/25/19 09:24 Blood Anaerobic Blood Culture - Final No growth in Anaerobic bottle after 5 days. 01/25/19 09:16 Blood Aerobic Blood Culture - Final Coag neg staph not lugdunensis 01/25/19 09:16 Blood Anaerobic Blood Culture - Final No growth in Anaerobic bottle after 5 days. 01/27/19 14:05 Blood Aerobic Blood Culture - Preliminary No growth in Aerobic bottle after 48 hours. 01/27/19 14:05 Blood Anaerobic Blood Culture - Preliminary No growth in Anaerobic bottle after 48 hours. 01/27/19 14:27 Blood Aerobic Blood Culture - Preliminary No growth in Aerobic bottle after 48 hours. 01/27/19 14:27 Blood Anaerobic Blood Culture - Preliminary No growth in Anaerobic bottle after 48 hours. PG Care Time/CCT Total # of Minutes Spent Total Time Spent with Patient: Total time spent is greater than 50% in coordination of care (as documented) at patient's floor/unit and/or counseling patient:
--- NOTE | 2019-01-31 14:24 | Pharmacy Report ---
Pharmacy Abx Dose Short Note - Date of Service January 31, 2019 - Assessment & Plan Assessment 88 year old M receiving vancomycin for treatment of bacteremia Day # 5 of antimicrobial therapy. Plan Vancomycin * Trough level came back therapeutic at 18.9 mcg/ml (goal 15-20 mcg/ml) * Will continue same vancomycin dosing for now / per ID will plan to switch to rocephin * Renal function remains stable Pharmacy will continue to follow and will adjust dose/frequency as necessary. Thank you.
[2019-01-31] MEDS: cefTRIAXone SODIUM 2,000 MG in DEXTROSE 5% 50 ML IV SCH (15:34)
[2019-01-31] MEDS: WARFARIN SOD 4 MG TAB PO SCH (15:38)
[2019-01-31] MEDS: LIDOCAINE 5% 1 PATCH TD SCH (20:10)
[2019-01-31] MEDS: MIRTAZAPINE TAB 15 MG TAB PO SCH (20:15)
[2019-01-31] MEDS: LATANOPROST 0.005% OP SOLN 2.5 ML BTL OP SCH (20:20)
[2019-02-01 08:02] LABS: Basophils # (auto) 0.01 K/uL (0-0.2); Basophils % (auto) 0.1 %; Eosinophils # (auto) 0.33 K/uL (0-0.5); Eosinophils % (auto) 4.3 %; Hematocrit (blood only) 35.5 % (42-52); Hemoglobin 12.2 g/dL (14.0-18.0); Immature Granulocytes # (auto) 0.03 K/uL (0.00-0.02); Immature Granulocytes % (auto) 0.4 %; Lymphocytes # (auto) 1.02 K/uL (1.2-3.4); Lymphocytes % (auto) 13.4 %; Mean Corpuscular Hemoglobin 31.3 pg (25-34); Mean Corpuscular Hgb Conc 34.4 g/dL (32-36); Mean Platelet Volume 9.8 fL (7.4-10.4); Monocytes # (auto) 0.76 K/uL (0.11-0.59); Neutrophils # (auto) 5.44 K/uL (1.4-6.5); Neutrophils % (auto) 71.8 %; Platelet Count 262 K/uL (130-400); RDW Standard Deviation 43.1 fL (36.4-46.3); White Blood Count 7.59 K/uL (4.8-10.8)
[2019-02-01] MEDS: CYANOCOBALAMIN 500 MCG TABLET (VITAMIN B-12) PO SCH (08:09)
[2019-02-01] MEDS: TAMSULOSIN HCL 0.4 MG CAP PO SCH (08:09)
[2019-02-01] MEDS: FINASTERIDE 5 MG TAB PO SCH (08:10)
[2019-02-01] MEDS: ISOSORBIDE MONO EXTENDED REL 30 MG TABCR PO SCH (08:10)
[2019-02-01] MEDS: ATORVASTATIN 20 MG TAB PO SCH (08:10)
[2019-02-01] MEDS: OMEGA-3 (PURIFIED FISH OIL) 1 GM CAP PO SCH (08:10)
[2019-02-01] MEDS: CHOLECALCIFEROL 1,000 UNITS TAB PO SCH (08:11)
[2019-02-01] MEDS: METOPROLOL SUCC 25MG EXT REL TAB PO SCH (08:11)
[2019-02-01] MEDS: PHENYTOIN SODIUM ER 30 MG CAP PO SCH (08:11)
[2019-02-01 08:12] LABS: INR 1.8 (0.9-1.1); Prothrombin Time 17.8 Seconds (9.0-12.0)
[2019-02-01] MEDS: PHENYTOIN SODIUM ER 100 MG CAP PO SCH (08:12)
[2019-02-01] MEDS: POLYETHYLENE (MIRALAX) 17 GM PACK PO SCH (08:13)
[2019-02-01] MEDS: INSULIN ASPART 100 UNITS/ML 3 ML PEN SC SCH ×2 (08:14→12:29)
[2019-02-01 08:19] LABS: Albumin Level 2.1 gm/dl (3.4-5.0); BUN Creatinine Ratio 22.1 (10-20); Calcium 9.3 mg/dl (8.5-10.1); Creatinine Clr Calc Pharmacy 69.7 ml/min; Est GFR (African American) 98.9; Est GFR (Non-African American) 85.4; Potassium 3.7 mmol/L (3.5-5.1)
[2019-02-01 08:22] LABS: Albumin Globulin Ratio 0.4 (0.9-2); Bilirubin,Total 0.3 mg/dl (0.2-1); Globulin 4.7 gm/dl (2.5-4.0); Total Protein 6.8 gm/dl (6.4-8.2)
[2019-02-01] MEDS ORDERED: AMLODIPINE BESYLATE 5 MG TAB PO ONE (11:27)
[2019-02-01] MEDS: cefTRIAXone SODIUM 2,000 MG in DEXTROSE 5% 50 ML IV SCH (12:06)
--- NOTE | 2019-02-01 12:21 | Discharge Summary ---
Date of Service February 01, 2019 Admission HPI Per Admitting Provider 88-year-old male with history of previous WI in 1992 status post stent placement, CVA 2001, PE/DVT on Coumadin, DM 2, hypertension, hyperlipidemia, severe dementia presents with family for concern of multiple falls x4 days. Patient lives in [place] with son and . Family had a get together for Thanksgiving today and daughter was concerned so she brought him to the ED. He usually does not leave the house but on Monday, 4 days ago he was noted to leave the house and fell in the driveway. Fall was unwitnessed. However he returned with facial abrasions and must of hit his face and head. Monday, 3 days ago he slipped out of bed of note he has chucks under him and must of slipped on them. Yesterday he was not complaining of any pain however today he was wincing and whining and complaining of back, abdominal and righ flank pain. He has abrasions on his faceeyelids cheeks chin knees and back. Of note: forgot to bring list of medications but will call and provide nursing with list of medications when she gets home tonight. Too late to call pharmacy but his pharmacy is [facility] [place] on [facility]. Our pharmacy did not have his records. Social history: Per family he never smoked, drink alcohol or use recreational drugs, lives with son and Admission Exam Per Admitting Provider Physical Exam: General: In NAD, hard of hearing Neuro: A&O x 1, CN 2-12 intact (unable to assess for facial sensation due to pt being demented and not responding appropriately), strength 5/5 bilateral upper and lower extremities, sensation upper and lower extremities (difficult to assess due to dementia) Pulm: CTAB equal breath sounds bilaterally CV: RRR, no m/r/g Abdomen:+BS, mild lower abdominal TTP, non-distended LE: no LE edema, no calf TTP, DP pulse intact 2+ on LLE and Posterior tibial pulse 2+ RLE Skin: Multiple abrasions on face, scalp, knees Principal Diagnosis Septicemia secondary to staph infection, UTI Discharge Exam Constitutional no acute distress Eyes PERRL, conjunctivae normal, anicteric sclerae Neck trachea midline, no thyromegaly Respiratory normal respiratory effort; no respiratory distress, no labored breathing and does not use accessory muscles Auscultation: + diminished lung sounds; no wheezes Cardiovascular RRR, no murmur, no edema Gastrointestinal (Abdomen) normal bowel sounds, soft, nontender, no hepatosplenomegaly Skin no rashes, warm and dry Neurologic deep tendon reflexes 2+ bilaterally Psychiatric Orientation: alert (much more alert today, eating breakfast by himself without difficulty) and cooperative Lymphatic no cervical or axillary lymphadenopathy Discharge Data Allergies Allergy/AdvReac Type Severity Reaction Status Date / Time Penicillins Allergy Severe Anaphylaxis Verified 01/25/19 03:41 Consultations 01/25/19 01:35 ED Decision to Admit Stat 01/25/19 04:17 Consult Case Management - Discharge Planning Stat 01/28/19 14:17 Consult Palliative Care Routine 01/31/19 11:11 Consult Infectious Diseases Routine Ordered Studies 01/24/19 22:36 CT abd pelvis IV con only Urgent CT cervical spine wo con Urgent CT chest w con Urgent CT head/brain wo con Urgent CT lumbar spine wo con Urgent CT thoracic spine wo con Urgent 01/24/19 23:49 US gallbladder Urgent Hospital Course (1) Bacteremia: * Likely from source, as urine culture also with coag neg staph * Blood culture from 01/25 growing coag neg staph * Repeat blood cx from 01/27 without growth * Continued Vancomycin as per discussion with pharmacy(was originally on ceftriaxone)--> Of note, our antibiogram for 2016 shows E. faecium only 58% sensitive to vanc, so antibiotic should be switched if E. faecium grows. * Ordered ECHO following conversation with micro/pharmacy --> no evidence of valvular vegetations although quality did not allow for definitive exclusion of valvular lesion * Infectious Disease Consult for exterminator termite abx -- transitioned to Rocephin 2g IV daily for total of 14 days from last negative blood culture --- to be completed on 02/10. Patient had US guided peripheral IV site placed on 01/31 * Of note, patient with PCN allergy for anaphylaxis -- patient had received Rocephin x 2 in ER on admission without reaction (2) Acute UTI: * UA on 01/24 indicated infection with WBCs, leuk esterase. * Culture with alpha strep not enteroccocus, coag negative staph * Switched to Rocpephin as above (3) Falls: * Four falls at home including a fairly hard fall onto driveway per . CT scans only showed a chronic left L3 transverse process fracture. * PT/OT during hospital stay with arrangements made to discharge to [facility] for halfway * Palliative Care consult was placed and POLST form was filled out. No heroic measures wanted. (4) Dementia: * Severe. Per his baseline is non-conversational. Placement at discharge * Palliative care consult -- appreciate input (5) CVA (cerebral vascular accident): * CVA in 2001. Dilantin level was 11.1 on 01/25 (lower end of normal). * Continued home Dilantin (6) Diabetes: * A1c 5.5 * Patient previously on metformin * SSI while inpatient with acceptable blood sugars. Metformin resumed on discharge (7) Pulmonary emboli: * Prior history per family. INR 3.5 on admission. Coumadin initially held and restarted on 01/27 with INR of 2.1 * INR dropped to 1.7 and was given additional 2mg dose on top of his home 4mg on 01/29 and slowly increased to 1.8 prior to discharge. Patient was given lovenox 40mg SQ until he becomes therapeutic and was discharged on such. Will need daily INRs and SQ lovenox until therapeutic. (8) HTN (hypertension): * STABLE. BP 131/75 on discharge. Patient's BP had been running on the high side. Metoprolol was initially held, restarted at 12.5mg and able to be titrated back up to 25mg prior to discharge. Given lisinopril 5mg x 1 on 01/31 (9) HLD (hyperlipidemia): * Continued atorvastatin 20mg (10) History of WI (myocardial infarction): * Continued statin as above. Unclear if ASA/plavix would benefit patient given age/dementia/comorbidities (11) History of DVT (deep vein thrombosis): * As above for PE. INR 1.8 prior to discharge with Lovenox bridge until therapeutic DNR/DNI. POLST form completed 01/30 by palliative care team Total Time Total Time Spent Total Time Spent (In Minutes): 50 Discharge Plan Discharge Items Patient Disposition: Transfer Nursing Home Fac Reason For Visit: UTI FALLS Discharge Diagnosis: Urinary Tract Infection, Bloodstream Infection Condition on Discharge: Fair Goals: You have been hospitalized for an acute medical problem. During your stay at [facility], we have made an effort to correct the problem that brought you to the hospital while keeping you as comfortable as possible. Medications were used to bring your condition under control and your discharge instructions will include directions for any medications you should take after leaving the hospital. Please make sure you see your Primary Care Provider as part of your follow up plan. Activity: Resume your previous activity Activity Comment: With assistance Bathing: No limitations Non-emergency contact: Primary Care Provider Call non-emergency contact if: you have any medication questions, your symptoms worsen and you have a fever Follow-up/Referrals: Abisai Downs MD [Primary Care Provider] - Diet: Carb Consistent or DM2 and Heart Healthy Diet Texture: Pureed (blended smooth) Addtl Attending Provider Instructions: You have been hospitalized for a urinary tract infection that is likely the source of the infection you developed in your blood stream. You have been treated with IV antibiotics during your hospitalization and are being sent to [facility] with Rocephin 2grams IV (once daily administration) to continue your treatment for a total treatment duration of 14 days from your last negative blood culture. The following medication changes have been made: -- START Metoprolol succinate 25mg daily -- CONTINUE Rocephin IV as above -- Potassium Chloride, 20MEQ once daily You should have a BMP drawn in the next 3 days to monitor if you should continue to take potassium supplementation. You should also have your INR drawn daily for the next 5 days. During that time, you will need to have Lovenox 40mg IM injections daily until your INR is therapeutic. Please follow up with your primary care provider in the next week. Please return to the emergency room with any symptoms that are concerning for you. It has been a pleasure being a part of the medical team taking care of you during your hospitalization. Take care! Pending Studies at Discharge: Yes Studies:: Repeat Blood Cultures -- preliminary without growth Stand-Alone Forms: My [facility] Skilled Items Patient informed of condition?: Yes DNR: Yes Discharge Level of Care: Skilled Communicable Disease: No Discharge Prognosis: Stable Lines: US Guided Peripheral IV Urinary Catheter: Yes (condom catheter) Medications and DC Order Prescriptions: New enoxaparin 40 mg/0.4 mL Syringe 40 mg subcut QAM 5 Days Qty: 2 RF: 0 ceftriaxone 2 gram recon soln 1 gm IV DAILY 8 Days Qty: 10 RF: 0 potassium chloride [Klor-Con] 20 mEq packet 20 meq PO DAILY 5 Days Qty: 5 RF: 0 Continued atorvastatin 20 mg Tablet 20 mg PO DAILY RF: 0 phenytoin sodium extended [Dilantin Extended] 100 mg Capsule 100 mg PO BID RF: 0 Dilantin 30 mg Capsule 30 mg PO BID RF: 0 mirtazapine 15 mg Tablet 15 mg PO HS RF: 0 finasteride 5 mg Tablet 5 mg PO DAILY RF: 0 metoprolol succinate 25 mg Tablet Extended Release 24 Hr 12.5 mg PO DAILY RF: 0 warfarin [Coumadin] 4 mg Tablet 4 mg PO DAILY RF: 0 metformin 500 mg Tablet 500 mg PO BID RF: 0 latanoprost 0.005 % Drops 1 drp OPHTHALMIC (EYE) HS RF: 0 tamsulosin 0.4 mg Capsule 0.4 mg PO DAILY RF: 0 isosorbide mononitrate 30 mg Tablet Extended Release 24 Hr 30 mg PO DAILY RF: 0 omega 4-uwt-[id number]-fish oil [Fish Oil] 1,000 mg (120 mg-180 mg) Capsule 1 cap PO BID RF: 0 cyanocobalamin (vitamin B-12) [Vitamin B-12] 500 mcg Tablet 500 mcg PO DAILY RF: 0 cholecalciferol (vitamin D3) [Vitamin D3] 2,000 unit Tablet 2,000 unit PO DAILY RF: 0 Discharge Orders: Discharge Order (Routine); Ordered 02/01/19 Ordered By: Louise Dior Admission Data Admit Date/Time: 01/25/19 02:18 Attending Provider: Jordy Carmona Admit Provider: Sean Tidwell Primary Care Provider: Abisai Downs Other Providers: Kolton Sahni ; Tiara Chinchilla ; Radha Parekh Other Interventions: Discharge Summary Assessment (RN) Last Done: 02/01/19 07:37 DC Date/Time DO NOT enter until pt leaves facility: 02/01/19 15:48 Supervising Physician Co-Signing Physician Notes Attending Attestation and Discharge Note: Pt seen/examined, chart reviewed in detail, discharge care plan d/w JOSEPH Dior. I agree w/ the parham components of her discharge documentation. 88yo male with advanced dementia, prior CVA (right MCA territory stroke), CAD, prior seizure on dilantin, BPH, DVT/PE - presented with weakness and falls. Ultimately discovered to have UTI and bacteremia. Pt with alpha strep/coag negative staph UTI. Blood cx's grew coag neg staph. Source for bacteremia likely the urine (urine indeed had 2 pathogens 1 of which was coag neg staph). Repeat blood cx's to date were negative during the stay. Echo w/o obvious valve lesions. Received IV vancomycin for UTI and bacteremia much of the stay and ultimately changed to 2 gm rocephin daily IV as per ID recs. At d/c will need 14-day course of IV rocephin for the UTI/bacteremia/septicemia. INR at d/c 1.8 - daily INRs until INR is between 2-3 and is stable. Lovenox SC daily for DVT proph until INR is therapeutic. In light of recent falls in setting of dementia he is being admitted to SNF post-d/c. Discharge exam: gen - thin, NAD HEENT - very hard of hearing heart - RRR, s1, s2 lungs - CTA b/l abd - soft ext - no edema psych - a/o x 1 only Jordy Carmona MD
[2019-02-01] MEDS: ENOXAPARIN INJ 40 MG/0.4 ML SYR SQ SCH ×2 (13:58→13:59)
[2019-02-01] MEDS: WARFARIN SOD 4 MG TAB PO SCH (15:18)
== END 2019-02-01 15:48 | DRG 871 ==
LOC: ED 22:11 → 2W 01-25 02:18 → SUATTDRO 01-25 02:18 → 2W 01-25 03:45